=== PATIENT | male | born 1965 | race Caucasian/White ===

== ENCOUNTER 2018-05-12 07:02 | Inpatient (IN) | payer BC ==
[~2018-05-12] VITALS: Ht 177.8 cm; Wt 104.8 kg
[~2018-05-12 07:02] MED LIST: ASA81 PO; CELE50CA PO; Embrel PO; FOLI-43 PO; HYDR-3610 PO; MAGN250T10 PO; METH2.5T PO; METO50TA7 PO; OXYC-133 PO; RANI300T4 PO
[2018-05-12 07:10] VITALS: BP_SYST 112
[2018-05-12] MEDS ORDERED: NACL 0.9% 1,000 ML IV ONE ×2 (07:30→17:45)
[2018-05-12 07:43] LABS: BASOPHILS % (AUTO) 0.3 % (0.0-2.0); EOSINOPHILS % (AUTO) 0.1 % (0.0-4.0); HEMATOCRIT 29.4 % (36-54); HEMOGLOBIN 9.9 g/dL (14.0-18.0); LYMPHOCYTES # (AUTO) 2.9 K/uL (1.0-5.5); LYMPHOCYTES % (AUTO) 18.2 % (20.5-51.5); MEAN CORPUSCULAR HEMOGLOBIN 31 pg (27-31); MEAN CORPUSCULAR HGB CONC 34 % (32-36); MEAN CORPUSCULAR VOLUME 92 fL (79.0-98.0); MONOCYTES # (AUTO) 1.3 K/uL (0.0-1.0); MONOCYTES % (AUTO) 7.9 % (1.7-9.3); NEUTROPHILS # (AUTO) 11.8 K/uL (1.8-7.7); NEUTROPHILS % (AUTO) 73.5 % (40.0-70.0); PLATELET COUNT (AUTO) 304 K/uL (130-430); RED CELL DISTRIBUTION WIDTH 13.7 % (9.0-15.0)
[2018-05-12] MEDS ORDERED: MAG-AL HYDROX/SIMETH 30 ML UDC PO ONE (08:00)
[2018-05-12 08:10] LABS: ALBUMIN 3.5 g/dL (3.4-4.8); POTASSIUM 4.7 mmol/L (3.5-5.1); TOTAL BILIRUBIN 0.2 mg/dL (0.0-1.0)
[2018-05-12] MEDS ORDERED: LORazepam 2 MG/ML VIAL IVP ONE (08:15)
[2018-05-12 08:19] LABS: CREATININE 0.86 mg/dL (0.55-1.30)
[2018-05-12] MEDS ORDERED: MULT-1089 PO (08:19)
[2018-05-12] MEDS ORDERED: ALPR0.5T PO (08:19)
[2018-05-12] MEDS ORDERED: HYDR-2489 PO (08:19)
[2018-05-12] MEDS ORDERED: RED600TA PO (08:19)
[2018-05-12] MEDS ORDERED: FERR140T PO (08:19)
[2018-05-12] MEDS ORDERED: SUCR1TAB78 PO (08:19)
[2018-05-12] MEDS ORDERED: GABA-531 PO (08:19)
[2018-05-12] MEDS ORDERED: CALC-823 PO (08:19)
[2018-05-12] MEDS ORDERED: [UNRECOGNIZED DRUG - CODE] PO ×2 (08:19→16:05)
[2018-05-12] MEDS ORDERED: ETAN50DI2 SQ (08:19)
[2018-05-12] MEDS ORDERED: SAW160CA3 PO (08:19)
[2018-05-12] MEDS ORDERED: VITA1CAP PO (08:19)
[2018-05-12] MEDS ORDERED: LORazepam 2 MG/ML VIAL (FOR ER USE) IVP ONE (08:30)
[2018-05-12] MEDS ORDERED: LORazepam 2 MG/ML VIAL (FOR ER USE) IM ONE (08:30)
[2018-05-12 08:38] LABS: PROTHROMBIN TIME 9.6 SECS (9.5-12.5)
[2018-05-12 10:28] VITALS: BP_SYST 118
[2018-05-12] MEDS ORDERED: METH25VI32 IJ (10:42)
[2018-05-12] MEDS ORDERED: MIDAZOLAM HCL 5 MG/5 ML VIAL IVP ONE (12:40)
[2018-05-12] MEDS ORDERED: hydrALAZINE HCL 20 MG/ML VIAL IVP ONE (12:40)
[2018-05-12] MEDS ORDERED: fentaNYL CITRATE/PF 100 MCG/2 ML AMP IVP ONE (12:40)
[2018-05-12] MEDS ORDERED: PROPOFOL 200MG/ 20ML VIAL (DIPRIVAN) IV ONE (12:40)
[2018-05-12] MEDS ORDERED: LR 1,000 ML IV.SOLN IV ONE (12:40)
[2018-05-12] MEDS ORDERED: HYDROcodone/ACETAMIN 10-325 MG TAB PO ONE (13:15)
[2018-05-12] MEDS ORDERED: HYDROcodone/ACETAMIN 10-325 MG TAB ONE (13:20)
[2018-05-12] MEDS ORDERED: MECLIZINE HCL 25 MG TABLET (ANITVERT) PO PRN (15:30)
[2018-05-12] MEDS ORDERED: KCL 20 mEq in D5NS 1000 mL 1,000 ML IV SCH (15:30)
[2018-05-12] MEDS ORDERED: DISOPYRAMIDE PHOSPHATE 150 MG CAPSULE PO SCH ×3 (16:30→21:00)
[2018-05-12 16:41] VITALS: BP_SYST 110
[2018-05-12] MEDS: SUCRALFATE 1 GM TABLET PO SCH ×2 (16:55→20:03)
[2018-05-12] MEDS: HYDROcodone/ACETAMIN 10-325 MG TAB PO PRN ×2 (18:11→22:43)
[2018-05-12] MEDS: NACL 0.9% 1,000 ML IV SCH (19:19)
[2018-05-12 19:47] VITALS: BP_SYST 114
[2018-05-12] MEDS: GABAPENTIN 300 MG CAPSULE PO SCH (20:03)
[2018-05-12] MEDS: NORPACE PO SCH (20:04)
[2018-05-13] VITALS: BP_SYST 101
[2018-05-13] MEDS: NACL 0.9% 1,000 ML IV SCH ×3 (00:33→10:49)
[2018-05-13] MEDS: HYDROcodone/ACETAMIN 10-325 MG TAB PO PRN ×4 (04:03→17:11)
[2018-05-13 07:37] LABS: BASOPHILS # (AUTO) 0.1 K/uL (0.0-0.2); BASOPHILS % (AUTO) 1.2 % (0.0-2.0); EOSINOPHILS # (AUTO) 0.1 K/uL (0.0-0.4); EOSINOPHILS % (AUTO) 0.7 % (0.0-4.0); LYMPHOCYTES # (AUTO) 2.9 K/uL (1.0-5.5); LYMPHOCYTES % (AUTO) 26.3 % (20.5-51.5); MEAN CORPUSCULAR HEMOGLOBIN 31 pg (27-31); MEAN CORPUSCULAR HGB CONC 33 % (32-36); MEAN CORPUSCULAR VOLUME 96 fL (79.0-98.0); MONOCYTES # (AUTO) 0.9 K/uL (0.0-1.0); NEUTROPHILS # (AUTO) 6.9 K/uL (1.8-7.7); NEUTROPHILS % (AUTO) 63.8 % (40.0-70.0); PLATELET COUNT (AUTO) 212 K/uL (130-430); RED BLOOD CELL COUNT(AUTO) 2.06 MIL/uL (4.2-6.2); RED CELL DISTRIBUTION WIDTH 13.9 % (9.0-15.0); WHITE BLOOD COUNT (AUTO) 10.9 K/uL (4.8-10.8)
[2018-05-13 07:38] LABS: ALBUMIN 2.6 g/dL (3.4-4.8); CALCIUM 8.1 mg/dL (8.4-11.0); CREATININE 0.62 mg/dL (0.55-1.30); POTASSIUM 3.8 mmol/L (3.5-5.1); TOTAL BILIRUBIN 0.3 mg/dL (0.0-1.0)
[2018-05-13 07:39] LABS: THYROID STIMULATING HORMONE 2.25 uIu/mL (0.34-4.82)
[2018-05-13 07:46] LABS: HEMATOCRIT 19.7 % (36-54); HEMOGLOBIN 6.4 g/dL (14.0-18.0)
[2018-05-13] MEDS: NORPACE PO SCH ×4 (08:00→20:52)
[2018-05-13] MEDS: FOLIC ACID 1 MG TABLET PO SCH (08:55)
[2018-05-13] MEDS: VITAMIN B COMPLEX 1 CAP/TAB PO SCH (08:55)
[2018-05-13] MEDS: MULTIVITAMINS TAB 1 TABLET PO SCH (08:55)
[2018-05-13] MEDS: GABAPENTIN 300 MG CAPSULE PO SCH ×3 (08:56→20:50)
[2018-05-13] MEDS: SUCRALFATE 1 GM TABLET PO SCH ×4 (08:56→20:49)
[2018-05-13] MEDS: CALCIUM CARBONATE/VITAMIN D3 1 TAB TABLET PO SCH (08:56)
[2018-05-13] MEDS: ASPIRIN 81 MG TAB.CHEW PO SCH (08:56)
[2018-05-13] MEDS: FERROUS SULFATE 140 MG TABLET.ER PO SCH (08:57)
[2018-05-13 09:00] LABS: TOTAL IRON BIND. CAPACITY 250 ug/dL (250-450)
[2018-05-13] MEDS: ALPRAZolam 0.25 MG TABLET PO PRN ×2 (10:48→17:10)
[2018-05-13 10:55] VITALS: BP_SYST 115
[2018-05-13] MEDS: HYDROmorphone 1 MG INJ. 1 MG/ML AMPUL IVP PRN ×2 (11:27→21:26)
[2018-05-13 16:02] VITALS: BP_SYST 100
[2018-05-13 19:45] VITALS: BP_SYST 111
[2018-05-13 22:20] VITALS: BP_SYST 119
[2018-05-13 22:41] VITALS: BP_SYST 113
[2018-05-14] VITALS (7 sets, daily range): BP systolic 103–134
[2018-05-14] MEDS: HYDROcodone/ACETAMIN 10-325 MG TAB PO PRN ×3 (01:01→20:51)
[2018-05-14] MEDS: NACL 0.9% 1,000 ML IV SCH ×3 (02:45→18:56)
[2018-05-14] MEDS: HYDROmorphone 1 MG INJ. 1 MG/ML AMPUL IVP PRN ×5 (05:21→23:12)
[2018-05-14 07:09] LABS: BASOPHILS % (AUTO) 0.3 % (0.0-2.0); EOSINOPHILS # (AUTO) 0.2 K/uL (0.0-0.4); EOSINOPHILS % (AUTO) 1.7 % (0.0-4.0); HEMOGLOBIN 7.1 g/dL (14.0-18.0); LYMPHOCYTES # (AUTO) 2.1 K/uL (1.0-5.5); LYMPHOCYTES % (AUTO) 20.7 % (20.5-51.5); MEAN CORPUSCULAR HEMOGLOBIN 31 pg (27-31); MEAN CORPUSCULAR HGB CONC 33 % (32-36); MEAN CORPUSCULAR VOLUME 95 fL (79.0-98.0); MONOCYTES % (AUTO) 9.7 % (1.7-9.3); NEUTROPHILS # (AUTO) 6.8 K/uL (1.8-7.7); NEUTROPHILS % (AUTO) 67.6 % (40.0-70.0); PLATELET COUNT (AUTO) 174 K/uL (130-430); RED BLOOD CELL COUNT(AUTO) 2.29 MIL/uL (4.2-6.2); RED CELL DISTRIBUTION WIDTH 13.9 % (9.0-15.0); WHITE BLOOD COUNT (AUTO) 10.1 K/uL (4.8-10.8)
[2018-05-14 07:29] LABS: HEMATOCRIT 21.7 % (36-54)
[2018-05-14 08:02] LABS: CALCIUM 7.7 mg/dL (8.4-11.0); CREATININE 0.61 mg/dL (0.55-1.30); POTASSIUM 3.8 mmol/L (3.5-5.1)
[2018-05-14] MEDS: VITAMIN B COMPLEX 1 CAP/TAB PO SCH (08:18)
[2018-05-14] MEDS: SUCRALFATE 1 GM TABLET PO SCH ×4 (08:18→20:50)
[2018-05-14] MEDS: MULTIVITAMINS TAB 1 TABLET PO SCH (08:18)
[2018-05-14] MEDS: ALPRAZolam 0.25 MG TABLET PO PRN (08:18)
[2018-05-14] MEDS: ASPIRIN 81 MG TAB.CHEW PO SCH (08:18)
[2018-05-14] MEDS: GABAPENTIN 300 MG CAPSULE PO SCH ×3 (08:18→20:50)
[2018-05-14] MEDS: CALCIUM CARBONATE/VITAMIN D3 1 TAB TABLET PO SCH (08:18)
[2018-05-14] MEDS: FERROUS SULFATE 140 MG TABLET.ER PO SCH (08:19)
[2018-05-14] MEDS: FOLIC ACID 1 MG TABLET PO SCH (08:19)
[2018-05-14] MEDS: NORPACE PO SCH ×3 (08:19→20:51)
[2018-05-14] MEDS ORDERED: DISOPYRAMIDE PHOSPHATE 150 MG CAPSULE PO SCH (09:30)
[2018-05-14] MEDS: levETIRAcetam 500 MG TABLET PO SCH (20:50)
[2018-05-15] MEDS: NACL 0.9% 1,000 ML IV SCH ×3 (02:37→18:46)
[2018-05-15] MEDS: HYDROcodone/ACETAMIN 10-325 MG TAB PO PRN ×4 (02:38→18:47)
[2018-05-15] MEDS: HYDROmorphone 1 MG INJ. 1 MG/ML AMPUL IVP PRN ×6 (05:08→20:58)
[2018-05-15 07:47] LABS: BASOPHILS % (AUTO) 0.5 % (0.0-2.0); EOSINOPHILS # (AUTO) 0.3 K/uL (0.0-0.4); HEMATOCRIT 24.7 % (36-54); HEMOGLOBIN 8.2 g/dL (14.0-18.0); LYMPHOCYTES # (AUTO) 2.3 K/uL (1.0-5.5); LYMPHOCYTES % (AUTO) 23.4 % (20.5-51.5); MEAN CORPUSCULAR HEMOGLOBIN 31 pg (27-31); MEAN CORPUSCULAR HGB CONC 33 % (32-36); MEAN CORPUSCULAR VOLUME 95 fL (79.0-98.0); MONOCYTES # (AUTO) 0.8 K/uL (0.0-1.0); MONOCYTES % (AUTO) 8.1 % (1.7-9.3); NEUTROPHILS # (AUTO) 6.4 K/uL (1.8-7.7); PLATELET COUNT (AUTO) 193 K/uL (130-430); RED CELL DISTRIBUTION WIDTH 13.9 % (9.0-15.0); WHITE BLOOD COUNT (AUTO) 9.8 K/uL (4.8-10.8)
[2018-05-15 07:52] LABS: CALCIUM 8.3 mg/dL (8.4-11.0); CREATININE 0.59 mg/dL (0.55-1.30); POTASSIUM 3.4 mmol/L (3.5-5.1)
[2018-05-15 08:00] VITALS: BP_SYST 112
[2018-05-15] MEDS: VITAMIN B COMPLEX 1 CAP/TAB PO SCH (08:27)
[2018-05-15] MEDS: FOLIC ACID 1 MG TABLET PO SCH (08:27)
[2018-05-15] MEDS: levETIRAcetam 500 MG TABLET PO SCH ×2 (08:27→20:30)
[2018-05-15] MEDS: ASPIRIN 81 MG TAB.CHEW PO SCH (08:27)
[2018-05-15] MEDS: SUCRALFATE 1 GM TABLET PO SCH ×4 (08:27→20:29)
[2018-05-15] MEDS: FERROUS SULFATE 140 MG TABLET.ER PO SCH (08:27)
[2018-05-15] MEDS: MULTIVITAMINS TAB 1 TABLET PO SCH (08:27)
[2018-05-15] MEDS: CALCIUM CARBONATE/VITAMIN D3 1 TAB TABLET PO SCH (08:27)
[2018-05-15] MEDS: NORPACE PO SCH ×3 (08:29→20:30)
[2018-05-15] MEDS: GABAPENTIN 300 MG CAPSULE PO SCH ×3 (08:44→20:29)
[2018-05-15] MEDS: ALPRAZolam 0.25 MG TABLET PO PRN (08:45)
[2018-05-15 12:00] VITALS: BP_SYST 129
[2018-05-15 16:00] VITALS: BP_SYST 132
[2018-05-15] MEDS ORDERED: GOLYTELY / COLYTE SOLUTION 4 LITERS PO ONE (18:00)
[2018-05-15 20:00] VITALS: BP_SYST 115
[2018-05-16] MEDS: HYDROcodone/ACETAMIN 10-325 MG TAB PO PRN ×4 (00:28→20:25)
[2018-05-16 01:26] VITALS: BP_SYST 118
[2018-05-16] MEDS: HYDROmorphone 1 MG INJ. 1 MG/ML AMPUL IVP PRN ×6 (01:47→22:14)
[2018-05-16] MEDS: NACL 0.9% 1,000 ML IV SCH ×3 (01:48→18:46)
[2018-05-16] MEDS ORDERED: fentaNYL CITRATE/PF 100 MCG/2 ML AMP ONE (06:32)
[2018-05-16] MEDS ORDERED: SIMETHICONE 40 MG/0.6 ML ML ONE (06:33)
[2018-05-16] MEDS ORDERED: MIDAZOLAM HCL 5 MG/5 ML VIAL ONE (06:33)
[2018-05-16] MEDS: MIDAZOLAM HCL 5 MG/5 ML VIAL ONE ×5 (07:02→07:18)
[2018-05-16] MEDS: MEPERIDINE HCL/PF 100 MG/ML AMP ONE ×3 (07:02→07:06)
[2018-05-16] MEDS ORDERED: MEPERIDINE HCL/PF 100 MG/ML AMP ONE (07:09)
[2018-05-16] MEDS: levETIRAcetam 500 MG TABLET PO SCH ×2 (08:56→20:25)
[2018-05-16] MEDS: ASPIRIN 81 MG TAB.CHEW PO SCH (08:56)
[2018-05-16] MEDS: ALPRAZolam 0.25 MG TABLET PO PRN ×2 (08:56→22:14)
[2018-05-16] MEDS: GABAPENTIN 300 MG CAPSULE PO SCH ×3 (08:57→20:24)
[2018-05-16] MEDS: CALCIUM CARBONATE/VITAMIN D3 1 TAB TABLET PO SCH (08:57)
[2018-05-16] MEDS: SUCRALFATE 1 GM TABLET PO SCH ×5 (08:57→20:24)
[2018-05-16] MEDS: VITAMIN B COMPLEX 1 CAP/TAB PO SCH (08:57)
[2018-05-16] MEDS: MULTIVITAMINS TAB 1 TABLET PO SCH (08:58)
[2018-05-16] MEDS: FERROUS SULFATE 140 MG TABLET.ER PO SCH (09:14)
[2018-05-16] MEDS: FOLIC ACID 1 MG TABLET PO SCH (09:14)
[2018-05-16] MEDS: NORPACE PO SCH ×3 (09:15→20:26)
[2018-05-16 11:17] LABS: INR 0.9 (0.80-1.20); PROTHROMBIN TIME 9.3 SECS (9.5-12.5)
[2018-05-16 11:20] LABS: BASOPHILS % (AUTO) 0.5 % (0.0-2.0); EOSINOPHILS # (AUTO) 0.3 K/uL (0.0-0.4); EOSINOPHILS % (AUTO) 3.7 % (0.0-4.0); LYMPHOCYTES # (AUTO) 1.7 K/uL (1.0-5.5); LYMPHOCYTES % (AUTO) 20.9 % (20.5-51.5); MEAN CORPUSCULAR HEMOGLOBIN 31 pg (27-31); MEAN CORPUSCULAR HGB CONC 33 % (32-36); MEAN CORPUSCULAR VOLUME 96 fL (79.0-98.0); MONOCYTES # (AUTO) 0.7 K/uL (0.0-1.0); MONOCYTES % (AUTO) 8.6 % (1.7-9.3); NEUTROPHILS # (AUTO) 5.6 K/uL (1.8-7.7); NEUTROPHILS % (AUTO) 66.3 % (40.0-70.0); PLATELET COUNT (AUTO) 219 K/uL (130-430); RED CELL DISTRIBUTION WIDTH 14.8 % (9.0-15.0); WHITE BLOOD COUNT (AUTO) 8.3 K/uL (4.8-10.8)
[2018-05-16 11:26] LABS: HEMOGLOBIN 7.2 g/dL (14.0-18.0)
[2018-05-16 12:24] LABS: TOTAL IRON BIND. CAPACITY 284 ug/dL (250-450)
[2018-05-16 12:38] VITALS: BP_SYST 110
[2018-05-16 16:40] VITALS: BP_SYST 122
[2018-05-16] MEDS ORDERED: SILVER SULFADIAZINE 1%, 25 GM TOPICAL CREAM (SSD) TP ONE (16:45)
[2018-05-16] MEDS: SOD FERRIC GLUC COMPLEX/SUC 125 MG in NS 100 ML IV SCH (17:40)
[2018-05-16 20:00] VITALS: BP_SYST 109
[2018-05-17] VITALS: BP_SYST 114
[2018-05-17] MEDS: NACL 0.9% 1,000 ML IV SCH ×3 (00:27→18:46)
[2018-05-17] MEDS: HYDROmorphone 1 MG INJ. 1 MG/ML AMPUL IVP PRN ×6 (02:25→20:57)
[2018-05-17] MEDS: HYDROcodone/ACETAMIN 10-325 MG TAB PO PRN ×3 (06:18→20:57)
[2018-05-17 06:46] LABS: BASOPHILS % (AUTO) 0.4 % (0.0-2.0); EOSINOPHILS # (AUTO) 0.2 K/uL (0.0-0.4); EOSINOPHILS % (AUTO) 3.7 % (0.0-4.0); LYMPHOCYTES # (AUTO) 1.7 K/uL (1.0-5.5); LYMPHOCYTES % (AUTO) 25.8 % (20.5-51.5); MEAN CORPUSCULAR HEMOGLOBIN 32 pg (27-31); MEAN CORPUSCULAR HGB CONC 33 % (32-36); MEAN CORPUSCULAR VOLUME 96 fL (79.0-98.0); MONOCYTES # (AUTO) 0.6 K/uL (0.0-1.0); MONOCYTES % (AUTO) 9.8 % (1.7-9.3); NEUTROPHILS # (AUTO) 4.1 K/uL (1.8-7.7); NEUTROPHILS % (AUTO) 60.3 % (40.0-70.0); PLATELET COUNT (AUTO) 204 K/uL (130-430); RED CELL DISTRIBUTION WIDTH 16.2 % (9.0-15.0); WHITE BLOOD COUNT (AUTO) 6.6 K/uL (4.8-10.8)
[2018-05-17 07:18] LABS: HEMATOCRIT 21.2 % (36-54)
[2018-05-17 08:00] VITALS: BP_SYST 134
[2018-05-17] MEDS: GABAPENTIN 300 MG CAPSULE PO SCH ×3 (09:02→20:56)
[2018-05-17] MEDS: ASPIRIN 81 MG TAB.CHEW PO SCH (09:02)
[2018-05-17] MEDS: MULTIVITAMINS TAB 1 TABLET PO SCH (09:02)
[2018-05-17] MEDS: CALCIUM CARBONATE/VITAMIN D3 1 TAB TABLET PO SCH (09:02)
[2018-05-17] MEDS: VITAMIN B COMPLEX 1 CAP/TAB PO SCH (09:03)
[2018-05-17] MEDS: NORPACE PO SCH ×3 (09:03→20:59)
[2018-05-17] MEDS: FERROUS SULFATE 140 MG TABLET.ER PO SCH (09:03)
[2018-05-17] MEDS: levETIRAcetam 500 MG TABLET PO SCH ×2 (09:03→20:56)
[2018-05-17] MEDS: SUCRALFATE 1 GM TABLET PO SCH ×4 (09:03→20:56)
[2018-05-17] MEDS: FOLIC ACID 1 MG TABLET PO SCH (09:03)
[2018-05-17] MEDS: ALPRAZolam 0.25 MG TABLET PO PRN ×2 (09:09→15:38)
[2018-05-17] MEDS: SILVER SULFADIAZINE 1%, 25 GM TOPICAL CREAM (SSD) TP SCH (09:09)
[2018-05-17 11:06] LABS: FERRITIN 43 ng/mL (30-400); FOLATE (FOLIC ACID) >20.0 ng/mL (>3.0)
[2018-05-17 12:02] VITALS: BP_SYST 138
[2018-05-17] MEDS: SOD FERRIC GLUC COMPLEX/SUC 125 MG in NS 100 ML IV SCH (14:48)
[2018-05-17 16:02] VITALS: BP_SYST 138
[2018-05-17 20:37] VITALS: BP_SYST 130
[2018-05-18 01:15] VITALS: BP_SYST 121
[2018-05-18] MEDS: HYDROmorphone 1 MG INJ. 1 MG/ML AMPUL IVP PRN ×5 (01:28→22:59)
[2018-05-18] MEDS: NACL 0.9% 1,000 ML IV SCH ×3 (04:31→18:19)
[2018-05-18] MEDS: SILVER SULFADIAZINE 1%, 25 GM TOPICAL CREAM (SSD) TP SCH (04:34)
[2018-05-18 07:26] LABS: ALBUMIN 2.7 g/dL (3.4-4.8); CALCIUM 8.5 mg/dL (8.4-11.0); CREATININE 0.67 mg/dL (0.55-1.30); POTASSIUM 3.2 mmol/L (3.5-5.1); TOTAL BILIRUBIN 0.3 mg/dL (0.0-1.0)
[2018-05-18 08:06] LABS: BASOPHILS # (AUTO) 0.1 K/uL (0.0-0.2); BASOPHILS % (AUTO) 1.3 % (0.0-2.0); EOSINOPHILS # (AUTO) 0.3 K/uL (0.0-0.4); EOSINOPHILS % (AUTO) 4.1 % (0.0-4.0); HEMOGLOBIN 7.1 g/dL (14.0-18.0); LYMPHOCYTES # (AUTO) 1.4 K/uL (1.0-5.5); LYMPHOCYTES % (AUTO) 21.5 % (20.5-51.5); MEAN CORPUSCULAR HEMOGLOBIN 31 pg (27-31); MEAN CORPUSCULAR HGB CONC 32 % (32-36); MEAN CORPUSCULAR VOLUME 97 fL (79.0-98.0); MONOCYTES # (AUTO) 0.8 K/uL (0.0-1.0); MONOCYTES % (AUTO) 11.7 % (1.7-9.3); NEUTROPHILS % (AUTO) 61.4 % (40.0-70.0); PLATELET COUNT (AUTO) 217 K/uL (130-430); RED BLOOD CELL COUNT(AUTO) 2.28 MIL/uL (4.2-6.2); RED CELL DISTRIBUTION WIDTH 16.9 % (9.0-15.0); WHITE BLOOD COUNT (AUTO) 6.6 K/uL (4.8-10.8)
[2018-05-18] MEDS: NORPACE PO SCH ×3 (08:20→20:19)
[2018-05-18] MEDS: CALCIUM CARBONATE/VITAMIN D3 1 TAB TABLET PO SCH (08:21)
[2018-05-18] MEDS: ALPRAZolam 0.25 MG TABLET PO PRN (08:21)
[2018-05-18] MEDS: FOLIC ACID 1 MG TABLET PO SCH (08:21)
[2018-05-18] MEDS: GABAPENTIN 300 MG CAPSULE PO SCH ×3 (08:21→20:18)
[2018-05-18] MEDS: ASPIRIN 81 MG TAB.CHEW PO SCH (08:21)
[2018-05-18] MEDS: MULTIVITAMINS TAB 1 TABLET PO SCH (08:21)
[2018-05-18] MEDS: FERROUS SULFATE 140 MG TABLET.ER PO SCH (08:21)
[2018-05-18] MEDS: VITAMIN B COMPLEX 1 CAP/TAB PO SCH (08:21)
[2018-05-18] MEDS: SUCRALFATE 1 GM TABLET PO SCH ×4 (08:22→20:17)
[2018-05-18] MEDS: levETIRAcetam 500 MG TABLET PO SCH ×2 (08:22→20:17)
[2018-05-18 08:26] VITALS: BP_SYST 125
[2018-05-18] MEDS ORDERED: BISACODYL 5 MG TABLET.DR (DULCOLAX) PO ONE ×2 (11:30→17:00)
[2018-05-18] MEDS ORDERED: MAGNESIUM CITRATE 300 ML ORAL SOLUTION PO ONE (11:30)
[2018-05-18 12:00] VITALS: BP_SYST 149
[2018-05-18] MEDS: HYDROcodone/ACETAMIN 10-325 MG TAB PO PRN ×3 (12:04→20:18)
[2018-05-18] MEDS: SOD FERRIC GLUC COMPLEX/SUC 125 MG in NS 100 ML IV SCH (14:17)
[2018-05-18] MEDS ORDERED: COMMUNICATION ORDER XX ONE (16:15)
[2018-05-18 16:56] VITALS: BP_SYST 122
[2018-05-18 17:02] LABS: RETICULOCYTE COUNT 11.4 % (0.5-1.5)
[2018-05-18] MEDS: GOLYTELY / COLYTE SOLUTION 4 LITERS PO SCH ×2 (17:55→22:21)
[2018-05-18] MEDS ORDERED: GOLYTELY / COLYTE SOLUTION 4 LITERS PO ONE (18:00)
[2018-05-18] MEDS ORDERED: HYDROmorphone 2 MG/ML VIAL ONE (18:34)
[2018-05-18 20:00] VITALS: BP_SYST 140
[2018-05-18] MEDS ORDERED: POTASSIUM CHLORIDE 20 MEQ TAB.PRT.SR PO ONE (21:30)
[2018-05-18] MEDS: ALPRAZolam 0.25 MG TABLET PO SCH (23:26)
[2018-05-19 02:25] VITALS: BP_SYST 127
[2018-05-19] MEDS: NACL 0.9% 1,000 ML IV SCH ×3 (02:46→21:31)
[2018-05-19] MEDS: HYDROmorphone 1 MG INJ. 1 MG/ML AMPUL IVP PRN ×5 (03:02→15:13)
[2018-05-19] MEDS ORDERED: HYDROmorphone 1 MG INJ. 1 MG/ML AMPUL ONE (04:13)
[2018-05-19] MEDS: HYDROmorphone 2 MG/ML VIAL IVP ONE ×2 (04:15→04:30)
[2018-05-19] MEDS: NORPACE PO SCH ×3 (08:00→21:00)
[2018-05-19 08:10] VITALS: BP_SYST 138
[2018-05-19] MEDS: levETIRAcetam 500 MG TABLET PO SCH ×2 (09:00→21:00)
[2018-05-19] MEDS: ALPRAZolam 0.25 MG TABLET PO SCH ×3 (09:00→22:10)
[2018-05-19] MEDS: VITAMIN B COMPLEX 1 CAP/TAB PO SCH (09:00)
[2018-05-19] MEDS: SUCRALFATE 1 GM TABLET PO SCH ×4 (09:00→21:00)
[2018-05-19] MEDS: FOLIC ACID 1 MG TABLET PO SCH (09:00)
[2018-05-19] MEDS: GABAPENTIN 300 MG CAPSULE PO SCH ×3 (09:00→22:11)
[2018-05-19] MEDS: CALCIUM CARBONATE/VITAMIN D3 1 TAB TABLET PO SCH (09:00)
[2018-05-19] MEDS: MULTIVITAMINS TAB 1 TABLET PO SCH (09:00)
[2018-05-19] MEDS: ASPIRIN 81 MG TAB.CHEW PO SCH (09:00)
[2018-05-19] MEDS: FERROUS SULFATE 140 MG TABLET.ER PO SCH (09:00)
[2018-05-19] MEDS ORDERED: HYDROmorphone 2 MG/ML VIAL IVP ONE (10:00)
[2018-05-19] MEDS: SILVER SULFADIAZINE 1%, 25 GM TOPICAL CREAM (SSD) TP SCH (10:19)
[2018-05-19 10:35] VITALS: BP_SYST 144
[2018-05-19 12:04] LABS: BASOPHILS % (AUTO) 0.4 % (0.0-2.0); EOSINOPHILS # (AUTO) 0.1 K/uL (0.0-0.4); EOSINOPHILS % (AUTO) 1.7 % (0.0-4.0); HEMATOCRIT 28.5 % (36-54); HEMOGLOBIN 8.8 g/dL (14.0-18.0); LYMPHOCYTES # (AUTO) 0.9 K/uL (1.0-5.5); LYMPHOCYTES % (AUTO) 10.5 % (20.5-51.5); MEAN CORPUSCULAR HEMOGLOBIN 29 pg (27-31); MEAN CORPUSCULAR HGB CONC 31 % (32-36); MEAN CORPUSCULAR VOLUME 95 fL (79.0-98.0); MONOCYTES # (AUTO) 0.7 K/uL (0.0-1.0); MONOCYTES % (AUTO) 7.6 % (1.7-9.3); NEUTROPHILS # (AUTO) 7.1 K/uL (1.8-7.7); NEUTROPHILS % (AUTO) 79.8 % (40.0-70.0); PLATELET COUNT (AUTO) 245 K/uL (130-430); RED BLOOD CELL COUNT(AUTO) 3.01 MIL/uL (4.2-6.2); RED CELL DISTRIBUTION WIDTH 16.3 % (9.0-15.0); WHITE BLOOD COUNT (AUTO) 8.8 K/uL (4.8-10.8)
[2018-05-19 12:20] LABS: CALCIUM 8.7 mg/dL (8.4-11.0); CREATININE 0.64 mg/dL (0.55-1.30); POTASSIUM 3.9 mmol/L (3.5-5.1)
[2018-05-19 12:48] LABS: PROTHROMBIN TIME 9.9 SECS (9.5-12.5)
[2018-05-19] MEDS ORDERED: SIMETHICONE 40 MG/0.6 ML ML ONE (13:05)
[2018-05-19] MEDS ORDERED: fentaNYL CITRATE/PF 100 MCG/2 ML AMP IVP PRN ×2 (13:15)
[2018-05-19] MEDS ORDERED: ONDANSETRON HCL 4 MG/2 ML VIAL IVP PRN (13:15)
[2018-05-19] MEDS ORDERED: KETOROLAC TROMETHAMINE 30 MG VIAL IVP PRN (13:15)
[2018-05-19] MEDS ORDERED: fentaNYL CITRATE/PF 100 MCG/2 ML AMP ONE (13:48)
[2018-05-19] MEDS: HYDROmorphone 2 MG/ML VIAL IVP PRN ×2 (17:22→20:28)
[2018-05-19] MEDS: SOD FERRIC GLUC COMPLEX/SUC 125 MG in NS 100 ML IV SCH (17:42)
[2018-05-19 20:00] VITALS: BP_SYST 126
[2018-05-19] MEDS: HYDROcodone/ACETAMIN 10-325 MG TAB PO PRN (22:06)
[2018-05-19 23:40] VITALS: BP_SYST 95
[2018-05-20] MEDS: HYDROmorphone 2 MG/ML VIAL IVP PRN ×7 (01:22→21:00)
[2018-05-20] MEDS: NACL 0.9% 1,000 ML IV SCH ×3 (04:57→14:30)
[2018-05-20 05:00] VITALS: BP_SYST 99
[2018-05-20 07:31] LABS: BASOPHILS % (AUTO) 0.2 % (0.0-2.0); EOSINOPHILS # (AUTO) 0.1 K/uL (0.0-0.4); EOSINOPHILS % (AUTO) 0.8 % (0.0-4.0); HEMATOCRIT 28.9 % (36-54); HEMOGLOBIN 9.3 g/dL (14.0-18.0); LYMPHOCYTES # (AUTO) 0.6 K/uL (1.0-5.5); MEAN CORPUSCULAR HEMOGLOBIN 30 pg (27-31); MEAN CORPUSCULAR HGB CONC 32 % (32-36); MEAN CORPUSCULAR VOLUME 94 fL (79.0-98.0); MONOCYTES # (AUTO) 0.5 K/uL (0.0-1.0); MONOCYTES % (AUTO) 5.7 % (1.7-9.3); NEUTROPHILS % (AUTO) 86.3 % (40.0-70.0); PLATELET COUNT (AUTO) 210 K/uL (130-430); RED BLOOD CELL COUNT(AUTO) 3.08 MIL/uL (4.2-6.2); RED CELL DISTRIBUTION WIDTH 16.2 % (9.0-15.0); WHITE BLOOD COUNT (AUTO) 8.2 K/uL (4.8-10.8)
[2018-05-20 08:11] VITALS: BP_SYST 107
[2018-05-20] MEDS: NORPACE PO SCH ×4 (08:15→23:01)
[2018-05-20] MEDS: FOLIC ACID 1 MG TABLET PO SCH (08:15)
[2018-05-20] MEDS: SUCRALFATE 1 GM TABLET PO SCH ×4 (08:15→22:55)
[2018-05-20] MEDS: FERROUS SULFATE 140 MG TABLET.ER PO SCH (08:15)
[2018-05-20] MEDS: levETIRAcetam 500 MG TABLET PO SCH ×2 (08:16→22:55)
[2018-05-20] MEDS: MULTIVITAMINS TAB 1 TABLET PO SCH (08:16)
[2018-05-20] MEDS: ALPRAZolam 0.25 MG TABLET PO SCH ×3 (08:16→22:55)
[2018-05-20] MEDS: CALCIUM CARBONATE/VITAMIN D3 1 TAB TABLET PO SCH (08:16)
[2018-05-20] MEDS: ASPIRIN 81 MG TAB.CHEW PO SCH (08:16)
[2018-05-20] MEDS: GABAPENTIN 300 MG CAPSULE PO SCH ×3 (08:16→22:55)
[2018-05-20] MEDS: VITAMIN B COMPLEX 1 CAP/TAB PO SCH (08:16)
[2018-05-20] MEDS: SILVER SULFADIAZINE 1%, 25 GM TOPICAL CREAM (SSD) TP SCH (08:18)
[2018-05-20] MEDS: ALBUTEROL SULFATE 0.083% 2.5 MG/3 ML VIAL.NEB INH PRN (10:47)
[2018-05-20 11:47] VITALS: BP_SYST 101
[2018-05-20 13:01] VITALS: BP_SYST 105
[2018-05-20] MEDS: SOD FERRIC GLUC COMPLEX/SUC 125 MG in NS 100 ML IV SCH (14:29)
[2018-05-20 16:49] VITALS: BP_SYST 116
[2018-05-20 20:35] VITALS: BP_SYST 116
[2018-05-20] MEDS: HYDROcodone/ACETAMIN 10-325 MG TAB PO PRN (22:57)
[2018-05-21] MEDS: NACL 0.9% 1,000 ML IV SCH ×4 (00:44→23:05)
[2018-05-21] MEDS: HYDROmorphone 2 MG/ML VIAL IVP PRN ×7 (00:47→23:10)
[2018-05-21 07:46] LABS: BASOPHILS % (AUTO) 0.1 % (0.0-2.0); EOSINOPHILS # (AUTO) 0.1 K/uL (0.0-0.4); EOSINOPHILS % (AUTO) 1.1 % (0.0-4.0); HEMATOCRIT 24.8 % (36-54); LYMPHOCYTES # (AUTO) 0.9 K/uL (1.0-5.5); LYMPHOCYTES % (AUTO) 12.9 % (20.5-51.5); MEAN CORPUSCULAR HEMOGLOBIN 30 pg (27-31); MEAN CORPUSCULAR HGB CONC 32 % (32-36); MEAN CORPUSCULAR VOLUME 94 fL (79.0-98.0); MONOCYTES # (AUTO) 0.6 K/uL (0.0-1.0); MONOCYTES % (AUTO) 9.3 % (1.7-9.3); NEUTROPHILS # (AUTO) 5.1 K/uL (1.8-7.7); NEUTROPHILS % (AUTO) 76.6 % (40.0-70.0); PLATELET COUNT (AUTO) 174 K/uL (130-430); RED BLOOD CELL COUNT(AUTO) 2.64 MIL/uL (4.2-6.2); RED CELL DISTRIBUTION WIDTH 15.1 % (9.0-15.0); WHITE BLOOD COUNT (AUTO) 6.7 K/uL (4.8-10.8)
[2018-05-21 08:16] VITALS: BP_SYST 119
[2018-05-21] MEDS: MULTIVITAMINS TAB 1 TABLET PO SCH (08:28)
[2018-05-21] MEDS: CALCIUM CARBONATE/VITAMIN D3 1 TAB TABLET PO SCH (08:28)
[2018-05-21] MEDS: VITAMIN B COMPLEX 1 CAP/TAB PO SCH (08:29)
[2018-05-21] MEDS: levETIRAcetam 500 MG TABLET PO SCH ×2 (08:29→22:53)
[2018-05-21] MEDS: ASPIRIN 81 MG TAB.CHEW PO SCH (08:29)
[2018-05-21] MEDS: FOLIC ACID 1 MG TABLET PO SCH (08:29)
[2018-05-21] MEDS: GABAPENTIN 300 MG CAPSULE PO SCH ×3 (08:29→22:52)
[2018-05-21] MEDS: SILVER SULFADIAZINE 1%, 25 GM TOPICAL CREAM (SSD) TP SCH (08:31)
[2018-05-21] MEDS: FERROUS SULFATE 140 MG TABLET.ER PO SCH (08:31)
[2018-05-21] MEDS: SUCRALFATE 1 GM TABLET PO SCH ×4 (08:31→22:53)
[2018-05-21] MEDS: ALPRAZolam 0.25 MG TABLET PO SCH ×3 (08:34→22:52)
[2018-05-21] MEDS: NORPACE PO SCH ×2 (11:29→22:55)
[2018-05-21 12:02] VITALS: BP_SYST 113
[2018-05-21] MEDS: HYDROcodone/ACETAMIN 10-325 MG TAB PO PRN (13:33)
[2018-05-21 16:02] VITALS: BP_SYST 121
[2018-05-21] MEDS ORDERED: LEVOFLOXACIN 500 MG/D5W 100 ML IV ONE (20:00)
[2018-05-21] MEDS ORDERED: PANTOPRAZOLE SODIUM 80 MG in NS 100 ML IV ONE (20:00)
[2018-05-21] MEDS ORDERED: COMMUNICATION ORDER XX ONE (21:00)
[2018-05-21] MEDS: metroNIDAZOLE 500 mg/NS 100 ML IV SCH (23:53)
[2018-05-22] MEDS: PANTOPRAZOLE SODIUM 40 MG in NS 50 ML IV SCH ×5 (00:04→21:18)
[2018-05-22] MEDS: HYDROmorphone 2 MG/ML VIAL IVP PRN ×8 (02:49→23:57)
[2018-05-22 04:21] VITALS: BP_SYST 102
[2018-05-22] MEDS: metroNIDAZOLE 500 mg/NS 100 ML IV SCH ×3 (05:45→21:47)
[2018-05-22 08:23] LABS: BASOPHILS % (AUTO) 0.4 % (0.0-2.0); EOSINOPHILS # (AUTO) 0.1 K/uL (0.0-0.4); EOSINOPHILS % (AUTO) 1.9 % (0.0-4.0); HEMATOCRIT 25.4 % (36-54); LYMPHOCYTES # (AUTO) 0.7 K/uL (1.0-5.5); LYMPHOCYTES % (AUTO) 10.8 % (20.5-51.5); MEAN CORPUSCULAR HEMOGLOBIN 30 pg (27-31); MEAN CORPUSCULAR HGB CONC 32 % (32-36); MEAN CORPUSCULAR VOLUME 94 fL (79.0-98.0); MONOCYTES # (AUTO) 0.7 K/uL (0.0-1.0); MONOCYTES % (AUTO) 10.6 % (1.7-9.3); NEUTROPHILS # (AUTO) 5.3 K/uL (1.8-7.7); PLATELET COUNT (AUTO) 194 K/uL (130-430); RED BLOOD CELL COUNT(AUTO) 2.71 MIL/uL (4.2-6.2); RED CELL DISTRIBUTION WIDTH 14.6 % (9.0-15.0); WHITE BLOOD COUNT (AUTO) 6.8 K/uL (4.8-10.8)
[2018-05-22] MEDS: FERROUS SULFATE 140 MG TABLET.ER PO SCH (09:01)
[2018-05-22] MEDS: ALPRAZolam 0.25 MG TABLET PO SCH ×3 (09:01→21:18)
[2018-05-22] MEDS: SUCRALFATE 1 GM TABLET PO SCH ×4 (09:01→21:46)
[2018-05-22] MEDS: VITAMIN B COMPLEX 1 CAP/TAB PO SCH (09:01)
[2018-05-22] MEDS: levETIRAcetam 500 MG TABLET PO SCH ×2 (09:02→21:18)
[2018-05-22] MEDS: MULTIVITAMINS TAB 1 TABLET PO SCH (09:02)
[2018-05-22] MEDS: ASPIRIN 81 MG TAB.CHEW PO SCH (09:02)
[2018-05-22] MEDS: FOLIC ACID 1 MG TABLET PO SCH (09:02)
[2018-05-22] MEDS: CALCIUM CARBONATE/VITAMIN D3 1 TAB TABLET PO SCH (09:02)
[2018-05-22] MEDS: GABAPENTIN 300 MG CAPSULE PO SCH ×3 (09:02→21:17)
[2018-05-22] MEDS: NORPACE PO SCH ×3 (09:04→21:48)
[2018-05-22] MEDS: SILVER SULFADIAZINE 1%, 25 GM TOPICAL CREAM (SSD) TP SCH (09:06)
[2018-05-22 09:44] LABS: CALCIUM 8.2 mg/dL (8.4-11.0); CREATININE 0.62 mg/dL (0.55-1.30); POTASSIUM 3.4 mmol/L (3.5-5.1)
[2018-05-22 09:47] LABS: ALBUMIN 1.9 g/dL (3.4-4.8); TOTAL BILIRUBIN 0.5 mg/dL (0.0-1.0)
[2018-05-22 11:19] LABS: NEUTROPHILS % (AUTO) 76.3 % (40.0-70.0)
[2018-05-22] MEDS: ALBUTEROL SULFATE 0.083% 2.5 MG/3 ML VIAL.NEB INH PRN (11:31)
[2018-05-22 12:06] VITALS: BP_SYST 105
[2018-05-22] MEDS ORDERED: *TPN PER PHARMACY XX PRN (17:00)
[2018-05-22] MEDS ORDERED: DEXTROSE 50% JECT 50 ML DISP.SYRIN IVP PRN (17:00)
[2018-05-22] MEDS: NACL 0.9% 1,000 ML IV SCH (17:27)
[2018-05-22] MEDS: HYDROcodone/ACETAMIN 10-325 MG TAB PO PRN (19:53)
[2018-05-22] MEDS: LEVOFLOXACIN 500 MG/D5W 100 ML IV SCH (22:57)
[2018-05-23] VITALS (11 sets, daily range): BP systolic 91–162
[2018-05-23] MEDS: PANTOPRAZOLE SODIUM 40 MG in NS 50 ML IV SCH ×5 (01:25→22:18)
[2018-05-23] MEDS: HYDROmorphone 2 MG/ML VIAL IVP PRN ×6 (03:16→21:15)
[2018-05-23] MEDS: metroNIDAZOLE 500 mg/NS 100 ML IV SCH ×3 (06:14→23:50)
[2018-05-23 07:46] LABS: BASOPHILS % (AUTO) 0.6 % (0.0-2.0); EOSINOPHILS # (AUTO) 0.1 K/uL (0.0-0.4); EOSINOPHILS % (AUTO) 1.8 % (0.0-4.0); HEMATOCRIT 24.2 % (36-54); HEMOGLOBIN 7.7 g/dL (14.0-18.0); LYMPHOCYTES # (AUTO) 0.8 K/uL (1.0-5.5); LYMPHOCYTES % (AUTO) 10.5 % (20.5-51.5); MEAN CORPUSCULAR HEMOGLOBIN 29 pg (27-31); MEAN CORPUSCULAR HGB CONC 32 % (32-36); MONOCYTES # (AUTO) 1.1 K/uL (0.0-1.0); MONOCYTES % (AUTO) 14.5 % (1.7-9.3); NEUTROPHILS # (AUTO) 5.8 K/uL (1.8-7.7); NEUTROPHILS % (AUTO) 72.6 % (40.0-70.0); PLATELET COUNT (AUTO) 263 K/uL (130-430); RED BLOOD CELL COUNT(AUTO) 2.62 MIL/uL (4.2-6.2); RED CELL DISTRIBUTION WIDTH 15.2 % (9.0-15.0); WHITE BLOOD COUNT (AUTO) 7.8 K/uL (4.8-10.8)
[2018-05-23 07:47] LABS: MEAN CORPUSCULAR VOLUME 92 fL (79.0-98.0)
[2018-05-23 07:47] LABS: ALBUMIN 1.9 g/dL (3.4-4.8); CALCIUM 8.6 mg/dL (8.4-11.0); CREATININE 0.65 mg/dL (0.55-1.30); POTASSIUM 3.6 mmol/L (3.5-5.1); TOTAL BILIRUBIN 0.5 mg/dL (0.0-1.0)
[2018-05-23 08:14] LABS: C-REACTIVE PROTEIN QUANT 14.1 mg/dL (0-0.5)
[2018-05-23 08:37] LABS: ERYTHROCYTE SEDIMENTATION RATE 116 MM/HR (0-15)
[2018-05-23] MEDS: ALPRAZolam 0.25 MG TABLET PO SCH ×3 (08:50→21:00)
[2018-05-23] MEDS: GABAPENTIN 300 MG CAPSULE PO SCH ×3 (08:50→21:00)
[2018-05-23] MEDS: NORPACE PO SCH ×3 (08:50→21:00)
[2018-05-23] MEDS: HYDROcodone/ACETAMIN 10-325 MG TAB PO PRN (08:51)
[2018-05-23] MEDS: SUCRALFATE 1 GM TABLET PO SCH ×4 (08:52→21:00)
[2018-05-23] MEDS: FOLIC ACID 1 MG TABLET PO SCH (08:52)
[2018-05-23] MEDS: ASPIRIN 81 MG TAB.CHEW PO SCH (08:52)
[2018-05-23] MEDS: VITAMIN B COMPLEX 1 CAP/TAB PO SCH (08:53)
[2018-05-23] MEDS: MULTIVITAMINS TAB 1 TABLET PO SCH (08:53)
[2018-05-23] MEDS: FERROUS SULFATE 140 MG TABLET.ER PO SCH (08:53)
[2018-05-23] MEDS: levETIRAcetam 500 MG TABLET PO SCH ×2 (08:53→21:00)
[2018-05-23] MEDS: CALCIUM CARBONATE/VITAMIN D3 1 TAB TABLET PO SCH (08:53)
[2018-05-23] MEDS: SILVER SULFADIAZINE 1%, 25 GM TOPICAL CREAM (SSD) TP SCH (08:54)
[2018-05-23] MEDS: NACL 0.9% 1,000 ML IV SCH ×2 (10:59→22:38)
[2018-05-23] MEDS ORDERED: IOHEXOL 100 ML IV ONE (11:18)
[2018-05-23 11:30] LABS: PROTHROMBIN TIME 10.2 SECS (9.5-12.5)
[2018-05-23] MEDS ORDERED: ONDANSETRON HCL 4 MG/2 ML VIAL IVP PRN (18:00)
[2018-05-23] MEDS ORDERED: TPN CENTRAL 0.0001 ML, SODIUM ACETATE 35 MEQ, POTASSIUM CHLORIDE 20 MEQ, K PHOS 9 MM, M... IV SCH ×9 (18:00)
[2018-05-23] MEDS ORDERED: fentaNYL CITRATE/PF 100 MCG/2 ML AMP IVP PRN ×2 (18:00)
[2018-05-23] MEDS ORDERED: FAT EMULSIONS 250 ML IV SCH (18:00)
[2018-05-23] MEDS ORDERED: PROPOFOL DRIP 100 ML IV ONE (20:27)
[2018-05-23] MEDS: PROPOFOL DRIP 100 ML IV PRN (20:57)
[2018-05-23] MEDS: LEVOFLOXACIN 500 MG/D5W 100 ML IV SCH (22:42)
[2018-05-23] MEDS ORDERED: LORazepam 2 MG/ML VIAL ONE (23:00)
[2018-05-23] MEDS ORDERED: LORazepam 2 MG/ML VIAL IVP PRN (23:00)
[2018-05-24] VITALS (29 sets, daily range): BP systolic 106–155
[2018-05-24] MEDS ORDERED: PIPERACILLIN/TAZO 3.375/DEX-IS 50 ML IV SCH
[2018-05-24] MEDS ORDERED: HYDROmorphone 2 MG/ML VIAL ONE (00:38)
[2018-05-24] MEDS: PROPOFOL DRIP 100 ML IV PRN ×4 (00:57→12:12)
[2018-05-24] MEDS ORDERED: PROPOFOL DRIP 100 ML IV ONE ×2 (00:59→03:24)
[2018-05-24] MEDS: PANTOPRAZOLE SODIUM 40 MG in NS 50 ML IV SCH ×5 (02:23→23:05)
[2018-05-24] MEDS: HYDROmorphone 2 MG/ML VIAL IVP PRN ×2 (04:16→07:35)
[2018-05-24] MEDS: metroNIDAZOLE 500 mg/NS 100 ML IV SCH ×2 (05:34→14:52)
[2018-05-24 06:06] LABS: BASOPHILS % (AUTO) 0.1 % (0.0-2.0); EOSINOPHILS % (AUTO) 0.1 % (0.0-4.0); HEMATOCRIT 23.4 % (36-54); HEMOGLOBIN 7.4 g/dL (14.0-18.0); LYMPHOCYTES # (AUTO) 0.4 K/uL (1.0-5.5); LYMPHOCYTES % (AUTO) 6.2 % (20.5-51.5); MEAN CORPUSCULAR HEMOGLOBIN 29 pg (27-31); MEAN CORPUSCULAR HGB CONC 32 % (32-36); MEAN CORPUSCULAR VOLUME 91 fL (79.0-98.0); MONOCYTES # (AUTO) 1.1 K/uL (0.0-1.0); MONOCYTES % (AUTO) 15.8 % (1.7-9.3); NEUTROPHILS # (AUTO) 5.6 K/uL (1.8-7.7); NEUTROPHILS % (AUTO) 77.8 % (40.0-70.0); PLATELET COUNT (AUTO) 275 K/uL (130-430); RED BLOOD CELL COUNT(AUTO) 2.56 MIL/uL (4.2-6.2); RED CELL DISTRIBUTION WIDTH 15.7 % (9.0-15.0); WHITE BLOOD COUNT (AUTO) 7.1 K/uL (4.8-10.8)
[2018-05-24 06:47] LABS: CREATININE 0.57 mg/dL (0.55-1.30); POTASSIUM 3.2 mmol/L (3.5-5.1)
[2018-05-24] MEDS: NORPACE PO SCH ×3 (08:00→21:00)
[2018-05-24 08:39] LABS: PHOSPHORUS 3.8 mg/dL (2.7-4.5)
[2018-05-24] MEDS: GABAPENTIN 300 MG CAPSULE PO SCH ×3 (09:00→21:00)
[2018-05-24] MEDS: VITAMIN B COMPLEX 1 CAP/TAB PO SCH (09:00)
[2018-05-24] MEDS: MULTIVITAMINS TAB 1 TABLET PO SCH (09:00)
[2018-05-24] MEDS: SUCRALFATE 1 GM TABLET PO SCH ×4 (09:00→21:00)
[2018-05-24] MEDS: ASPIRIN 81 MG TAB.CHEW PO SCH (09:00)
[2018-05-24] MEDS: FOLIC ACID 1 MG TABLET PO SCH (09:00)
[2018-05-24] MEDS: FERROUS SULFATE 140 MG TABLET.ER PO SCH (09:00)
[2018-05-24] MEDS: PIPERACILLIN/TAZO 3.375/DEX-IS 50 ML IV SCH ×3 (09:20→21:52)
[2018-05-24] MEDS: levETIRAcetam 500 MG in NS 100 ML IV SCH ×2 (09:21→21:16)
[2018-05-24] MEDS: INSULIN REGULAR, HUMAN 100 UNITS/ML, 10 ML VIAL (novoLIN R) SUBCUT PRN ×2 (09:28→12:08)
[2018-05-24] MEDS: SILVER SULFADIAZINE 1%, 25 GM TOPICAL CREAM (SSD) TP SCH (09:36)
[2018-05-24] MEDS ORDERED: POTASSIUM CHLORIDE 40 MEQ in NS 250 ML IV ONE (09:45)
[2018-05-24] MEDS: HYDROmorphone 1 MG INJ. 1 MG/ML AMPUL IVP PRN ×10 (10:30→23:23)
[2018-05-24] MEDS: LORazepam 2 MG/ML VIAL IVP PRN ×3 (13:15→23:05)
[2018-05-24] MEDS: NACL 0.9% 1,000 ML IV SCH (13:17)
[2018-05-24] MEDS ORDERED: ENOXAPARIN SODIUM 100 MG/ML SYRINGE SUBCUT ONE (17:30)
[2018-05-24] MEDS ORDERED: *LOVENOX 1MG/KG Q12H/PHARMACY XX ONE (17:30)
[2018-05-24] MEDS: FLUCONAZOLE 200 mg/ NS 100 ML IV SCH (17:44)
[2018-05-24] MEDS: FAT EMULSIONS 250 ML IV SCH (17:46)
[2018-05-24] MEDS ORDERED: [UNRECOGNIZED DRUG - OTHER] IV SCH ×11 (18:00)
[2018-05-24] MEDS ORDERED: SODIUM ACETATE IV SCH ×11 (18:00)
[2018-05-24] MEDS ORDERED: K PHOS IV SCH ×11 (18:00)
[2018-05-24] MEDS ORDERED: POTASSIUM CHLORIDE IV SCH ×11 (18:00)
[2018-05-24] MEDS ORDERED: TPN CENTRAL IV SCH ×11 (18:00)
[2018-05-25] VITALS (15 sets, daily range): BP systolic 109–144
[2018-05-25] MEDS: NACL 0.9% 1,000 ML IV SCH ×3 (00:38→13:16)
[2018-05-25] MEDS: HYDROmorphone 1 MG INJ. 1 MG/ML AMPUL IVP PRN ×9 (01:05→23:14)
[2018-05-25] MEDS: PIPERACILLIN/TAZO 3.375/DEX-IS 50 ML IV SCH ×4 (02:50→20:21)
[2018-05-25] MEDS: PANTOPRAZOLE SODIUM 40 MG in NS 50 ML IV SCH ×3 (03:54→09:16)
[2018-05-25 05:08] LABS: BASOPHILS # (AUTO) 0.1 K/uL (0.0-0.2); BASOPHILS % (AUTO) 0.6 % (0.0-2.0); EOSINOPHILS % (AUTO) 0.4 % (0.0-4.0); HEMATOCRIT 25.2 % (36-54); HEMOGLOBIN 8.1 g/dL (14.0-18.0); LYMPHOCYTES # (AUTO) 0.8 K/uL (1.0-5.5); LYMPHOCYTES % (AUTO) 8.4 % (20.5-51.5); MEAN CORPUSCULAR HEMOGLOBIN 29 pg (27-31); MEAN CORPUSCULAR HGB CONC 32 % (32-36); MEAN CORPUSCULAR VOLUME 91 fL (79.0-98.0); MONOCYTES # (AUTO) 1.3 K/uL (0.0-1.0); MONOCYTES % (AUTO) 12.6 % (1.7-9.3); NEUTROPHILS # (AUTO) 7.9 K/uL (1.8-7.7); PLATELET COUNT (AUTO) 331 K/uL (130-430); RED BLOOD CELL COUNT(AUTO) 2.78 MIL/uL (4.2-6.2); WHITE BLOOD COUNT (AUTO) 10.1 K/uL (4.8-10.8)
[2018-05-25 05:27] LABS: ALBUMIN 1.7 g/dL (3.4-4.8); CALCIUM 8.1 mg/dL (8.4-11.0); CREATININE 0.59 mg/dL (0.55-1.30); PHOSPHORUS 2.7 mg/dL (2.7-4.5); POTASSIUM 3.1 mmol/L (3.5-5.1); TOTAL BILIRUBIN 0.4 mg/dL (0.0-1.0)
[2018-05-25] MEDS ORDERED: GLUCOSE 15 GM GEL (in 37.5 GM TUBE) PO PRN ×2 (07:45)
[2018-05-25] MEDS ORDERED: DEXTROSE 50%-WATER 50 ML DISP.SYRIN IVP PRN ×2 (07:45)
[2018-05-25] MEDS ORDERED: ENOXAPARIN SODIUM 100 MG/ML SYRINGE SUBCUT SCH (09:00)
[2018-05-25] MEDS: GABAPENTIN 300 MG CAPSULE PO SCH ×3 (09:00→21:00)
[2018-05-25] MEDS: SUCRALFATE 1 GM TABLET PO SCH ×4 (09:00→21:00)
[2018-05-25] MEDS: LORazepam 2 MG/ML VIAL IVP PRN (09:10)
[2018-05-25] MEDS: levETIRAcetam 500 MG in NS 100 ML IV SCH ×2 (09:11→20:18)
[2018-05-25] MEDS: SILVER SULFADIAZINE 1%, 25 GM TOPICAL CREAM (SSD) TP SCH (09:17)
[2018-05-25] MEDS ORDERED: LORazepam 2 MG/ML VIAL IVP PRN (10:30)
[2018-05-25] MEDS ORDERED: HYDROmorphone 1 MG INJ. 1 MG/ML AMPUL IVP PRN (10:45)
[2018-05-25] MEDS ORDERED: POTASSIUM CHLORIDE 40 MEQ in NS 250 ML IV ONE (11:30)
[2018-05-25] MEDS: NORPACE PO SCH ×3 (12:00→21:00)
[2018-05-25] MEDS: MULTIVITAMINS TAB 1 TABLET PO SCH (12:26)
[2018-05-25] MEDS: ASPIRIN 81 MG TAB.CHEW PO SCH (12:27)
[2018-05-25] MEDS: FOLIC ACID 1 MG TABLET PO SCH (12:27)
[2018-05-25] MEDS: VITAMIN B COMPLEX 1 CAP/TAB PO SCH (12:28)
[2018-05-25] MEDS: FERROUS SULFATE 140 MG TABLET.ER PO SCH (12:29)
[2018-05-25] MEDS: FAT EMULSIONS 250 ML IV SCH (15:10)
[2018-05-25] MEDS: KETOROLAC TROMETHAMINE 15 MG VIAL IVP PRN (16:26)
[2018-05-25] MEDS: FLUCONAZOLE 200 mg/ NS 100 ML IV SCH (16:26)
[2018-05-25] MEDS ORDERED: SODIUM ACETATE IV SCH ×11 (18:00)
[2018-05-25] MEDS ORDERED: K PHOS IV SCH ×11 (18:00)
[2018-05-25] MEDS ORDERED: [UNRECOGNIZED DRUG - OTHER] IV SCH ×11 (18:00)
[2018-05-25] MEDS ORDERED: POTASSIUM CHLORIDE IV SCH ×11 (18:00)
[2018-05-25] MEDS ORDERED: TPN CENTRAL IV SCH ×11 (18:00)
[2018-05-25] MEDS: K PHOS IV SCH ×11 (18:12)
[2018-05-25] MEDS: TPN CENTRAL IV SCH ×11 (18:12)
[2018-05-25] MEDS: SODIUM ACETATE IV SCH ×11 (18:12)
[2018-05-25] MEDS: [UNRECOGNIZED DRUG - OTHER] IV SCH ×11 (18:12)
[2018-05-25] MEDS: POTASSIUM CHLORIDE IV SCH ×11 (18:12)
[2018-05-25] MEDS: INSULIN REGULAR, HUMAN 100 UNITS/ML, 10 ML VIAL (novoLIN R) SUBCUT PRN (20:33)
[2018-05-26 01:09] VITALS: BP_SYST 143
[2018-05-26] MEDS: HYDROmorphone 1 MG INJ. 1 MG/ML AMPUL IVP PRN ×8 (03:13→22:04)
[2018-05-26] MEDS: NACL 0.9% 1,000 ML IV SCH (03:40)
[2018-05-26] MEDS: FAT EMULSIONS 250 ML IV SCH ×2 (03:43→15:08)
[2018-05-26] MEDS: PIPERACILLIN/TAZO 3.375/DEX-IS 50 ML IV SCH ×4 (03:44→19:43)
[2018-05-26 08:07] LABS: BASOPHILS # (AUTO) 0.1 K/uL (0.0-0.2); BASOPHILS % (AUTO) 0.8 % (0.0-2.0); EOSINOPHILS # (AUTO) 0.2 K/uL (0.0-0.4); EOSINOPHILS % (AUTO) 1.9 % (0.0-4.0); HEMATOCRIT 24.4 % (36-54); LYMPHOCYTES % (AUTO) 8.5 % (20.5-51.5); MEAN CORPUSCULAR HEMOGLOBIN 29 pg (27-31); MEAN CORPUSCULAR HGB CONC 33 % (32-36); MEAN CORPUSCULAR VOLUME 90 fL (79.0-98.0); MONOCYTES % (AUTO) 8.4 % (1.7-9.3); NEUTROPHILS # (AUTO) 9.2 K/uL (1.8-7.7); NEUTROPHILS % (AUTO) 80.4 % (40.0-70.0); PLATELET COUNT (AUTO) 390 K/uL (130-430); RED BLOOD CELL COUNT(AUTO) 2.73 MIL/uL (4.2-6.2); RED CELL DISTRIBUTION WIDTH 15.3 % (9.0-15.0); WHITE BLOOD COUNT (AUTO) 11.5 K/uL (4.8-10.8)
[2018-05-26 08:22] LABS: ALBUMIN 1.6 g/dL (3.4-4.8); CALCIUM 8.1 mg/dL (8.4-11.0); CREATININE 0.57 mg/dL (0.55-1.30); POTASSIUM 4.1 mmol/L (3.5-5.1); TOTAL BILIRUBIN 0.2 mg/dL (0.0-1.0)
[2018-05-26] MEDS: KETOROLAC TROMETHAMINE 15 MG VIAL IVP PRN ×2 (08:56→14:38)
[2018-05-26 08:59] VITALS: BP_SYST 155
[2018-05-26 09:01] VITALS: BP_SYST 143
[2018-05-26] MEDS: SUCRALFATE 1 GM TABLET PO SCH ×4 (09:04→19:52)
[2018-05-26] MEDS: NORPACE PO SCH ×3 (09:04→19:53)
[2018-05-26] MEDS: GABAPENTIN 300 MG CAPSULE PO SCH ×3 (09:04→19:52)
[2018-05-26] MEDS: ASPIRIN 81 MG TAB.CHEW PO SCH (09:05)
[2018-05-26] MEDS: VITAMIN B COMPLEX 1 CAP/TAB PO SCH (09:05)
[2018-05-26] MEDS: MULTIVITAMINS TAB 1 TABLET PO SCH (09:05)
[2018-05-26] MEDS: FERROUS SULFATE 140 MG TABLET.ER PO SCH (09:06)
[2018-05-26] MEDS: FOLIC ACID 1 MG TABLET PO SCH (09:06)
[2018-05-26] MEDS: SILVER SULFADIAZINE 1%, 25 GM TOPICAL CREAM (SSD) TP SCH (09:06)
[2018-05-26] MEDS: PANTOPRAZOLE SODIUM 40 MG/VIAL (PROTONIX) IVP SCH (09:07)
[2018-05-26] MEDS: ENOXAPARIN SODIUM 40 MG/0.4 ML SYRINGE SUBCUT SCH (09:10)
[2018-05-26] MEDS: levETIRAcetam 500 MG in NS 100 ML IV SCH ×2 (10:10→21:19)
[2018-05-26 11:01] LABS: PHOSPHORUS 3.6 mg/dL (2.7-4.5)
[2018-05-26 11:16] VITALS: BP_SYST 127
[2018-05-26] MEDS ORDERED: VANCOMYCIN HCL 1 GM/NS PREMIX 250 ML IV ONE (12:00)
[2018-05-26] MEDS: FLUCONAZOLE 200 mg/ NS 100 ML IV SCH (16:45)
[2018-05-26] MEDS ORDERED: LR 1,000 ML IV.SOLN IV ONE (16:50)
[2018-05-26] MEDS ORDERED: LIDOCAINE MPF 2% 20 MG/1 ML, 5 ML VIAL INH ONE (16:50)
[2018-05-26] MEDS ORDERED: BUPIVACAINE /PF 0.5% 30 ML VIAL INJ ONE (16:50)
[2018-05-26] MEDS ORDERED: PIPERACILLIN/TAZOBACTAM 3.375 GM/VIAL (ZOSYN) IV ONE (16:50)
[2018-05-26] MEDS ORDERED: MIDAZOLAM HCL 5 MG/5 ML VIAL IVP ONE (16:50)
[2018-05-26] MEDS ORDERED: fentaNYL CITRATE 250 MCG/5 ML AMP IV ONE (16:50)
[2018-05-26] MEDS ORDERED: WATER FOR IRRIGATION,STERILE 1,000 ML IRRIG.SOLN IR ONE (16:50)
[2018-05-26] MEDS ORDERED: PROPOFOL 200MG/ 20ML VIAL (DIPRIVAN) IV ONE (16:50)
[2018-05-26] MEDS ORDERED: SEVOFLURANE 15 MIN GAS INH ONE (16:50)
[2018-05-26] MEDS ORDERED: ROCURONIUM BROMIDE 10 MG/ML (ZEMURON) IV ONE (16:50)
[2018-05-26 16:53] VITALS: BP_SYST 113
[2018-05-26] MEDS: [UNRECOGNIZED DRUG - OTHER] IV SCH ×11 (17:40)
[2018-05-26] MEDS: K PHOS IV SCH ×11 (17:40)
[2018-05-26] MEDS: SODIUM ACETATE IV SCH ×11 (17:40)
[2018-05-26] MEDS: TPN CENTRAL IV SCH ×11 (17:40)
[2018-05-26] MEDS: POTASSIUM CHLORIDE IV SCH ×11 (17:40)
[2018-05-26 20:00] VITALS: BP_SYST 121
[2018-05-27] VITALS (7 sets, daily range): BP systolic 119–139
[2018-05-27] MEDS: HYDROmorphone 1 MG INJ. 1 MG/ML AMPUL IVP PRN ×12 (00:08→22:35)
[2018-05-27] MEDS: PIPERACILLIN/TAZO 3.375/DEX-IS 50 ML IV SCH ×4 (01:55→20:30)
[2018-05-27] MEDS: NACL 0.9% 1,000 ML IV SCH (01:56)
[2018-05-27] MEDS: FAT EMULSIONS 250 ML IV SCH ×2 (04:05→16:24)
[2018-05-27 07:30] LABS: CREATININE 0.76 mg/dL (0.55-1.30); POTASSIUM 3.6 mmol/L (3.5-5.1)
[2018-05-27 07:36] LABS: PHOSPHORUS 3.9 mg/dL (2.7-4.5)
[2018-05-27 08:10] LABS: BASOPHILS # (AUTO) 0.1 K/uL (0.0-0.2); BASOPHILS % (AUTO) 0.8 % (0.0-2.0); EOSINOPHILS # (AUTO) 0.3 K/uL (0.0-0.4); EOSINOPHILS % (AUTO) 2.5 % (0.0-4.0); HEMATOCRIT 26.3 % (36-54); HEMOGLOBIN 8.6 g/dL (14.0-18.0); LYMPHOCYTES # (AUTO) 1.1 K/uL (1.0-5.5); LYMPHOCYTES % (AUTO) 9.2 % (20.5-51.5); MEAN CORPUSCULAR HEMOGLOBIN 30 pg (27-31); MEAN CORPUSCULAR HGB CONC 33 % (32-36); MEAN CORPUSCULAR VOLUME 92 fL (79.0-98.0); MONOCYTES # (AUTO) 1.1 K/uL (0.0-1.0); MONOCYTES % (AUTO) 9.3 % (1.7-9.3); NEUTROPHILS # (AUTO) 9.4 K/uL (1.8-7.7); NEUTROPHILS % (AUTO) 78.2 % (40.0-70.0); PLATELET COUNT (AUTO) 448 K/uL (130-430); RED BLOOD CELL COUNT(AUTO) 2.85 MIL/uL (4.2-6.2); RED CELL DISTRIBUTION WIDTH 16.4 % (9.0-15.0)
[2018-05-27] MEDS: MULTIVITAMINS TAB 1 TABLET PO SCH (08:16)
[2018-05-27] MEDS: VITAMIN B COMPLEX 1 CAP/TAB PO SCH (08:16)
[2018-05-27] MEDS: GABAPENTIN 300 MG CAPSULE PO SCH ×3 (08:17→22:14)
[2018-05-27] MEDS: SUCRALFATE 1 GM TABLET PO SCH ×4 (08:17→22:14)
[2018-05-27] MEDS: PANTOPRAZOLE SODIUM 40 MG/VIAL (PROTONIX) IVP SCH (08:17)
[2018-05-27] MEDS: ASPIRIN 81 MG TAB.CHEW PO SCH (08:17)
[2018-05-27] MEDS: FOLIC ACID 1 MG TABLET PO SCH (08:17)
[2018-05-27] MEDS: FERROUS SULFATE 140 MG TABLET.ER PO SCH (08:18)
[2018-05-27] MEDS: NORPACE PO SCH ×3 (08:20→22:14)
[2018-05-27] MEDS: ENOXAPARIN SODIUM 40 MG/0.4 ML SYRINGE SUBCUT SCH (08:21)
[2018-05-27] MEDS: SILVER SULFADIAZINE 1%, 25 GM TOPICAL CREAM (SSD) TP SCH (08:37)
[2018-05-27] MEDS: levETIRAcetam 500 MG in NS 100 ML IV SCH ×2 (09:12→22:12)
[2018-05-27] MEDS: IPRATROPIUM BROM 0.5 MG/2.5 ML VIAL.NEB (ATROVENT) INH SCH ×2 (15:32→19:40)
[2018-05-27] MEDS: ALBUTEROL SULFATE 0.083% 2.5 MG/3 ML VIAL.NEB INH SCH ×2 (15:32→19:40)
[2018-05-27] MEDS: FLUCONAZOLE 200 mg/ NS 100 ML IV SCH (16:26)
[2018-05-27] MEDS ORDERED: POTASSIUM CHLORIDE IV SCH ×11 (18:00)
[2018-05-27] MEDS ORDERED: K PHOS IV SCH ×11 (18:00)
[2018-05-27] MEDS ORDERED: [UNRECOGNIZED DRUG - OTHER] IV SCH ×11 (18:00)
[2018-05-27] MEDS ORDERED: TPN CENTRAL IV SCH ×11 (18:00)
[2018-05-27] MEDS ORDERED: SODIUM ACETATE IV SCH ×11 (18:00)
[2018-05-28 00:44] VITALS: BP_SYST 110
[2018-05-28] MEDS: HYDROmorphone 1 MG INJ. 1 MG/ML AMPUL IVP PRN ×11 (01:10→22:24)
[2018-05-28] MEDS: PIPERACILLIN/TAZO 3.375/DEX-IS 50 ML IV SCH ×4 (03:16→20:09)
[2018-05-28] MEDS: FAT EMULSIONS 250 ML IV SCH ×2 (05:19→18:14)
[2018-05-28 07:00] LABS: BASOPHILS # (AUTO) 0.1 K/uL (0.0-0.2); BASOPHILS % (AUTO) 0.5 % (0.0-2.0); EOSINOPHILS # (AUTO) 0.2 K/uL (0.0-0.4); EOSINOPHILS % (AUTO) 1.5 % (0.0-4.0); HEMATOCRIT 24.5 % (36-54); HEMOGLOBIN 7.9 g/dL (14.0-18.0); LYMPHOCYTES # (AUTO) 1.2 K/uL (1.0-5.5); LYMPHOCYTES % (AUTO) 9.1 % (20.5-51.5); MEAN CORPUSCULAR HEMOGLOBIN 29 pg (27-31); MEAN CORPUSCULAR HGB CONC 32 % (32-36); MEAN CORPUSCULAR VOLUME 90 fL (79.0-98.0); MONOCYTES # (AUTO) 1.4 K/uL (0.0-1.0); MONOCYTES % (AUTO) 11.1 % (1.7-9.3); NEUTROPHILS # (AUTO) 10.1 K/uL (1.8-7.7); NEUTROPHILS % (AUTO) 77.8 % (40.0-70.0); PLATELET COUNT (AUTO) 507 K/uL (130-430); RED BLOOD CELL COUNT(AUTO) 2.72 MIL/uL (4.2-6.2); RED CELL DISTRIBUTION WIDTH 16.2 % (9.0-15.0)
[2018-05-28] MEDS: ALBUTEROL SULFATE 0.083% 2.5 MG/3 ML VIAL.NEB INH SCH ×3 (07:26→20:15)
[2018-05-28] MEDS: IPRATROPIUM BROM 0.5 MG/2.5 ML VIAL.NEB (ATROVENT) INH SCH ×3 (07:27→20:15)
[2018-05-28 08:00] VITALS: BP_SYST 138
[2018-05-28] MEDS: NORPACE PO SCH ×3 (08:26→20:10)
[2018-05-28] MEDS: FERROUS SULFATE 140 MG TABLET.ER PO SCH (08:27)
[2018-05-28] MEDS: PANTOPRAZOLE SODIUM 40 MG/VIAL (PROTONIX) IVP SCH (08:27)
[2018-05-28] MEDS: levETIRAcetam 500 MG in NS 100 ML IV SCH ×2 (08:27→20:09)
[2018-05-28] MEDS: GABAPENTIN 300 MG CAPSULE PO SCH ×3 (08:28→20:09)
[2018-05-28] MEDS: SUCRALFATE 1 GM TABLET PO SCH ×4 (08:28→20:09)
[2018-05-28] MEDS: ASPIRIN 81 MG TAB.CHEW PO SCH (08:28)
[2018-05-28] MEDS: MULTIVITAMINS TAB 1 TABLET PO SCH (08:28)
[2018-05-28] MEDS: VITAMIN B COMPLEX 1 CAP/TAB PO SCH (08:28)
[2018-05-28] MEDS: FOLIC ACID 1 MG TABLET PO SCH (08:28)
[2018-05-28] MEDS: SILVER SULFADIAZINE 1%, 25 GM TOPICAL CREAM (SSD) TP SCH (08:28)
[2018-05-28] MEDS: ENOXAPARIN SODIUM 40 MG/0.4 ML SYRINGE SUBCUT SCH (08:30)
[2018-05-28 08:39] LABS: CALCIUM 7.9 mg/dL (8.4-11.0); CREATININE 0.68 mg/dL (0.55-1.30); POTASSIUM 3.9 mmol/L (3.5-5.1)
[2018-05-28 08:45] LABS: ALBUMIN 1.7 g/dL (3.4-4.8); TOTAL BILIRUBIN 0.3 mg/dL (0.0-1.0)
[2018-05-28] MEDS ORDERED: MINERAL OIL 30 ML UDC PO ONE (09:00)
[2018-05-28] MEDS: DOCUSATE SODIUM 100 MG CAPSULE PO SCH ×2 (10:05→20:09)
[2018-05-28 12:23] VITALS: BP_SYST 127
[2018-05-28 16:21] VITALS: BP_SYST 120
[2018-05-28] MEDS: FLUCONAZOLE 200 mg/ NS 100 ML IV SCH (17:37)
[2018-05-28] MEDS ORDERED: K PHOS IV SCH ×10 (18:00)
[2018-05-28] MEDS ORDERED: POTASSIUM CHLORIDE IV SCH ×10 (18:00)
[2018-05-28] MEDS ORDERED: [UNRECOGNIZED DRUG - OTHER] IV SCH ×10 (18:00)
[2018-05-28] MEDS ORDERED: TPN CENTRAL IV SCH ×10 (18:00)
[2018-05-28 19:20] VITALS: BP_SYST 118
[2018-05-28 23:26] VITALS: BP_SYST 118
[2018-05-29] MEDS: HYDROmorphone 1 MG INJ. 1 MG/ML AMPUL IVP PRN ×5 (00:45→09:34)
[2018-05-29] MEDS: PIPERACILLIN/TAZO 3.375/DEX-IS 50 ML IV SCH ×4 (02:46→20:09)
[2018-05-29] MEDS: FAT EMULSIONS 250 ML IV SCH (05:33)
[2018-05-29 06:49] LABS: ALBUMIN 1.9 g/dL (3.4-4.8); CALCIUM 8.5 mg/dL (8.4-11.0); CREATININE 0.73 mg/dL (0.55-1.30); PHOSPHORUS 4.2 mg/dL (2.7-4.5); POTASSIUM 3.7 mmol/L (3.5-5.1); TOTAL BILIRUBIN 0.4 mg/dL (0.0-1.0)
[2018-05-29] MEDS: IPRATROPIUM BROM 0.5 MG/2.5 ML VIAL.NEB (ATROVENT) INH SCH ×2 (07:00→20:49)
[2018-05-29] MEDS: ALBUTEROL SULFATE 0.083% 2.5 MG/3 ML VIAL.NEB INH SCH ×2 (07:00→20:49)
[2018-05-29 07:20] LABS: BASOPHILS # (AUTO) 0.1 K/uL (0.0-0.2); BASOPHILS % (AUTO) 0.4 % (0.0-2.0); EOSINOPHILS # (AUTO) 0.1 K/uL (0.0-0.4); EOSINOPHILS % (AUTO) 0.9 % (0.0-4.0); HEMATOCRIT 26.1 % (36-54); HEMOGLOBIN 8.6 g/dL (14.0-18.0); LYMPHOCYTES # (AUTO) 1.2 K/uL (1.0-5.5); LYMPHOCYTES % (AUTO) 8.4 % (20.5-51.5); MEAN CORPUSCULAR HEMOGLOBIN 30 pg (27-31); MEAN CORPUSCULAR HGB CONC 33 % (32-36); MEAN CORPUSCULAR VOLUME 90 fL (79.0-98.0); MONOCYTES # (AUTO) 1.3 K/uL (0.0-1.0); MONOCYTES % (AUTO) 9.1 % (1.7-9.3); NEUTROPHILS # (AUTO) 11.1 K/uL (1.8-7.7); PLATELET COUNT (AUTO) 510 K/uL (130-430); RED BLOOD CELL COUNT(AUTO) 2.88 MIL/uL (4.2-6.2); RED CELL DISTRIBUTION WIDTH 16.2 % (9.0-15.0); WHITE BLOOD COUNT (AUTO) 13.8 K/uL (4.8-10.8)
[2018-05-29 08:10] VITALS: BP_SYST 127
[2018-05-29] MEDS: DOCUSATE SODIUM 100 MG CAPSULE PO SCH ×2 (09:31→20:34)
[2018-05-29] MEDS: levETIRAcetam 500 MG in NS 100 ML IV SCH ×2 (09:31→20:09)
[2018-05-29] MEDS: GABAPENTIN 300 MG CAPSULE PO SCH ×3 (09:31→20:08)
[2018-05-29] MEDS: FOLIC ACID 1 MG TABLET PO SCH (09:31)
[2018-05-29] MEDS: MULTIVITAMINS TAB 1 TABLET PO SCH (09:31)
[2018-05-29] MEDS: ASPIRIN 81 MG TAB.CHEW PO SCH (09:31)
[2018-05-29] MEDS: SUCRALFATE 1 GM TABLET PO SCH ×4 (09:31→20:08)
[2018-05-29] MEDS: VITAMIN B COMPLEX 1 CAP/TAB PO SCH (09:31)
[2018-05-29] MEDS: PANTOPRAZOLE SODIUM 40 MG/VIAL (PROTONIX) IVP SCH (09:32)
[2018-05-29] MEDS: NORPACE PO SCH ×3 (09:33→20:11)
[2018-05-29] MEDS: FERROUS SULFATE 140 MG TABLET.ER PO SCH (09:35)
[2018-05-29] MEDS: ENOXAPARIN SODIUM 40 MG/0.4 ML SYRINGE SUBCUT SCH (09:53)
[2018-05-29] MEDS: SILVER SULFADIAZINE 1%, 25 GM TOPICAL CREAM (SSD) TP SCH (09:56)
[2018-05-29] MEDS ORDERED: HYDROmorphone 2 MG/ML VIAL IVP PRN (10:00)
[2018-05-29 11:55] LABS: NEUTROPHILS % (AUTO) 81.2 % (40.0-70.0)
[2018-05-29 12:00] VITALS: BP_SYST 124
[2018-05-29] MEDS: HYDROcodone/ACETAMIN 10-325 MG TAB PO PRN (15:52)
[2018-05-29 16:45] VITALS: BP_SYST 124
[2018-05-29] MEDS: HYDROmorphone 2 MG/ML VIAL IVP PRN ×3 (16:48→23:15)
[2018-05-29] MEDS: FLUCONAZOLE 200 mg/ NS 100 ML IV SCH (16:48)
[2018-05-29] MEDS: INSULIN REGULAR, HUMAN 100 UNITS/ML, 10 ML VIAL (novoLIN R) SUBCUT PRN (17:54)
[2018-05-29] MEDS ORDERED: POTASSIUM CHLORIDE IV SCH ×10 (18:00)
[2018-05-29] MEDS ORDERED: [UNRECOGNIZED DRUG - OTHER] IV SCH ×10 (18:00)
[2018-05-29] MEDS ORDERED: TPN CENTRAL IV SCH ×10 (18:00)
[2018-05-29] MEDS ORDERED: K PHOS IV SCH ×10 (18:00)
[2018-05-29 18:26] VITALS: BP_SYST 124
[2018-05-29 20:00] VITALS: BP_SYST 117
[2018-05-30 00:18] VITALS: BP_SYST 116
[2018-05-30] MEDS: HYDROmorphone 2 MG/ML VIAL IVP PRN ×5 (02:37→22:44)
[2018-05-30] MEDS: PIPERACILLIN/TAZO 3.375/DEX-IS 50 ML IV SCH ×4 (02:37→22:19)
[2018-05-30] MEDS: HYDROcodone/ACETAMIN 10-325 MG TAB PO PRN ×2 (05:45→16:32)
[2018-05-30 07:19] LABS: BASOPHILS # (AUTO) 0.1 K/uL (0.0-0.2); BASOPHILS % (AUTO) 0.5 % (0.0-2.0); EOSINOPHILS # (AUTO) 0.1 K/uL (0.0-0.4); EOSINOPHILS % (AUTO) 1.2 % (0.0-4.0); HEMATOCRIT 26.5 % (36-54); HEMOGLOBIN 8.5 g/dL (14.0-18.0); LYMPHOCYTES # (AUTO) 1.3 K/uL (1.0-5.5); MEAN CORPUSCULAR HEMOGLOBIN 29 pg (27-31); MEAN CORPUSCULAR HGB CONC 32 % (32-36); MEAN CORPUSCULAR VOLUME 89 fL (79.0-98.0); MONOCYTES # (AUTO) 1.2 K/uL (0.0-1.0); MONOCYTES % (AUTO) 9.9 % (1.7-9.3); NEUTROPHILS # (AUTO) 8.9 K/uL (1.8-7.7); NEUTROPHILS % (AUTO) 77.4 % (40.0-70.0); PLATELET COUNT (AUTO) 546 K/uL (130-430); RED BLOOD CELL COUNT(AUTO) 2.97 MIL/uL (4.2-6.2); RED CELL DISTRIBUTION WIDTH 16.6 % (9.0-15.0); WHITE BLOOD COUNT (AUTO) 11.6 K/uL (4.8-10.8)
[2018-05-30 07:52] LABS: ALBUMIN 1.9 g/dL (3.4-4.8); CALCIUM 9.1 mg/dL (8.4-11.0); CREATININE 0.66 mg/dL (0.55-1.30); PHOSPHORUS 4.5 mg/dL (2.7-4.5); POTASSIUM 4.6 mmol/L (3.5-5.1); TOTAL BILIRUBIN 0.5 mg/dL (0.0-1.0)
[2018-05-30 08:00] VITALS: BP_SYST 114
[2018-05-30] MEDS: IPRATROPIUM BROM 0.5 MG/2.5 ML VIAL.NEB (ATROVENT) INH SCH ×3 (08:26→20:13)
[2018-05-30] MEDS: ALBUTEROL SULFATE 0.083% 2.5 MG/3 ML VIAL.NEB INH SCH ×3 (08:26→20:13)
[2018-05-30] MEDS: DOCUSATE SODIUM 100 MG CAPSULE PO SCH ×2 (09:00→22:10)
[2018-05-30] MEDS: NORPACE PO SCH ×3 (09:30→22:10)
[2018-05-30] MEDS: ASPIRIN 81 MG TAB.CHEW PO SCH (09:31)
[2018-05-30] MEDS: VITAMIN B COMPLEX 1 CAP/TAB PO SCH (09:31)
[2018-05-30] MEDS: MULTIVITAMINS TAB 1 TABLET PO SCH (09:31)
[2018-05-30] MEDS: GABAPENTIN 300 MG CAPSULE PO SCH ×3 (09:31→22:09)
[2018-05-30] MEDS: FERROUS SULFATE 140 MG TABLET.ER PO SCH (09:31)
[2018-05-30] MEDS: SUCRALFATE 1 GM TABLET PO SCH ×4 (09:31→22:09)
[2018-05-30] MEDS: FOLIC ACID 1 MG TABLET PO SCH (09:31)
[2018-05-30] MEDS: PANTOPRAZOLE SODIUM 40 MG/VIAL (PROTONIX) IVP SCH (09:33)
[2018-05-30] MEDS: ENOXAPARIN SODIUM 40 MG/0.4 ML SYRINGE SUBCUT SCH (09:37)
[2018-05-30] MEDS: levETIRAcetam 500 MG in NS 100 ML IV SCH ×2 (09:41→23:01)
[2018-05-30] MEDS: SILVER SULFADIAZINE 1%, 25 GM TOPICAL CREAM (SSD) TP SCH (09:44)
[2018-05-30 12:29] VITALS: BP_SYST 109
[2018-05-30] MEDS: FLUCONAZOLE 200 mg/ NS 100 ML IV SCH (16:31)
[2018-05-30 16:52] VITALS: BP_SYST 140
[2018-05-30 20:30] VITALS: BP_SYST 116
[2018-05-30 23:41] VITALS: BP_SYST 104
[2018-05-31] MEDS: HYDROmorphone 2 MG/ML VIAL IVP PRN ×6 (02:03→21:05)
[2018-05-31] MEDS: PIPERACILLIN/TAZO 3.375/DEX-IS 50 ML IV SCH ×4 (02:22→20:52)
[2018-05-31 06:51] LABS: BASOPHILS % (AUTO) 0.4 % (0.0-2.0); EOSINOPHILS # (AUTO) 0.1 K/uL (0.0-0.4); EOSINOPHILS % (AUTO) 1.3 % (0.0-4.0); HEMATOCRIT 26.4 % (36-54); HEMOGLOBIN 8.4 g/dL (14.0-18.0); LYMPHOCYTES # (AUTO) 1.4 K/uL (1.0-5.5); LYMPHOCYTES % (AUTO) 13.2 % (20.5-51.5); MEAN CORPUSCULAR HEMOGLOBIN 28 pg (27-31); MEAN CORPUSCULAR HGB CONC 32 % (32-36); MEAN CORPUSCULAR VOLUME 89 fL (79.0-98.0); MONOCYTES # (AUTO) 1.1 K/uL (0.0-1.0); MONOCYTES % (AUTO) 10.6 % (1.7-9.3); NEUTROPHILS # (AUTO) 7.7 K/uL (1.8-7.7); NEUTROPHILS % (AUTO) 74.5 % (40.0-70.0); PLATELET COUNT (AUTO) 589 K/uL (130-430); RED BLOOD CELL COUNT(AUTO) 2.96 MIL/uL (4.2-6.2); RED CELL DISTRIBUTION WIDTH 16.4 % (9.0-15.0); WHITE BLOOD COUNT (AUTO) 10.3 K/uL (4.8-10.8)
[2018-05-31] MEDS: ALBUTEROL SULFATE 0.083% 2.5 MG/3 ML VIAL.NEB INH SCH ×2 (07:50→15:00)
[2018-05-31] MEDS: IPRATROPIUM BROM 0.5 MG/2.5 ML VIAL.NEB (ATROVENT) INH SCH ×2 (07:50→15:00)
[2018-05-31 08:51] VITALS: BP_SYST 107
[2018-05-31] MEDS: ENOXAPARIN SODIUM 40 MG/0.4 ML SYRINGE SUBCUT SCH (08:54)
[2018-05-31] MEDS: NORPACE PO SCH ×3 (08:56→21:18)
[2018-05-31] MEDS: MULTIVITAMINS TAB 1 TABLET PO SCH (08:56)
[2018-05-31] MEDS: FOLIC ACID 1 MG TABLET PO SCH (08:56)
[2018-05-31] MEDS: SUCRALFATE 1 GM TABLET PO SCH ×4 (08:57→21:03)
[2018-05-31] MEDS: DOCUSATE SODIUM 100 MG CAPSULE PO SCH ×2 (08:57→21:03)
[2018-05-31] MEDS: GABAPENTIN 300 MG CAPSULE PO SCH ×3 (08:57→21:04)
[2018-05-31] MEDS: VITAMIN B COMPLEX 1 CAP/TAB PO SCH (08:57)
[2018-05-31] MEDS: PANTOPRAZOLE SODIUM 40 MG/VIAL (PROTONIX) IVP SCH (08:57)
[2018-05-31] MEDS: ASPIRIN 81 MG TAB.CHEW PO SCH (08:57)
[2018-05-31] MEDS: levETIRAcetam 500 MG in NS 100 ML IV SCH ×2 (08:58→21:21)
[2018-05-31] MEDS: FERROUS SULFATE 140 MG TABLET.ER PO SCH (08:58)
[2018-05-31] MEDS: SILVER SULFADIAZINE 1%, 25 GM TOPICAL CREAM (SSD) TP SCH (09:00)
[2018-05-31 10:30] VITALS: BP_SYST 102
[2018-05-31 13:40] VITALS: BP_SYST 112
[2018-05-31 17:19] VITALS: BP_SYST 102
[2018-05-31] MEDS: LIDOCAINE PATCH 5% 1 EA TP SCH (18:44)
[2018-05-31] MEDS ORDERED: LIDOCAINE PATCH 5% 1 EA TP ONE (18:51)
[2018-05-31 19:31] VITALS: BP_SYST 106
[2018-05-31] MEDS ORDERED: COMMUNICATION ORDER XX ONE (19:45)
[2018-06-01 00:51] VITALS: BP_SYST 123
[2018-06-01] MEDS: PIPERACILLIN/TAZO 3.375/DEX-IS 50 ML IV SCH ×4 (01:02→18:44)
[2018-06-01] MEDS: HYDROmorphone 2 MG/ML VIAL IVP PRN ×7 (01:11→21:43)
[2018-06-01] MEDS: IPRATROPIUM BROM 0.5 MG/2.5 ML VIAL.NEB (ATROVENT) INH SCH ×3 (07:00→21:00)
[2018-06-01] MEDS: ALBUTEROL SULFATE 0.083% 2.5 MG/3 ML VIAL.NEB INH SCH ×3 (07:00→21:00)
[2018-06-01 08:06] VITALS: BP_SYST 104
[2018-06-01] MEDS: ASPIRIN 81 MG TAB.CHEW PO SCH (08:31)
[2018-06-01] MEDS: SUCRALFATE 1 GM TABLET PO SCH ×4 (08:31→21:32)
[2018-06-01] MEDS: NORPACE PO SCH ×3 (08:31→21:34)
[2018-06-01] MEDS: GABAPENTIN 300 MG CAPSULE PO SCH ×3 (08:31→21:33)
[2018-06-01] MEDS: VITAMIN B COMPLEX 1 CAP/TAB PO SCH (08:31)
[2018-06-01] MEDS: FOLIC ACID 1 MG TABLET PO SCH (08:31)
[2018-06-01] MEDS: MULTIVITAMINS TAB 1 TABLET PO SCH (08:31)
[2018-06-01] MEDS: DOCUSATE SODIUM 100 MG CAPSULE PO SCH ×2 (08:31→21:33)
[2018-06-01] MEDS: PANTOPRAZOLE SODIUM 40 MG/VIAL (PROTONIX) IVP SCH (08:32)
[2018-06-01] MEDS: FERROUS SULFATE 140 MG TABLET.ER PO SCH (08:32)
[2018-06-01] MEDS: LIDOCAINE PATCH 5% 1 EA TP SCH (08:32)
[2018-06-01] MEDS: SILVER SULFADIAZINE 1%, 25 GM TOPICAL CREAM (SSD) TP SCH (08:33)
[2018-06-01] MEDS: levETIRAcetam 500 MG in NS 100 ML IV SCH ×2 (08:33→21:36)
[2018-06-01] MEDS: ENOXAPARIN SODIUM 40 MG/0.4 ML SYRINGE SUBCUT SCH (08:34)
[2018-06-01] MEDS ORDERED: FLUCONAZOLE 200 MG TABLET (DIFLUCAN) PO ONE (11:45)
[2018-06-01 12:00] VITALS: BP_SYST 102
[2018-06-01] MEDS: cefTRIAXone 2 GM in D5W 50 ML IV SCH (12:08)
[2018-06-01 16:23] VITALS: BP_SYST 106
[2018-06-01 20:00] VITALS: BP_SYST 113
[2018-06-02] MEDS: HYDROmorphone 2 MG/ML VIAL IVP PRN ×6 (00:43→16:05)
[2018-06-02] MEDS: PIPERACILLIN/TAZO 3.375/DEX-IS 50 ML IV SCH ×4 (00:43→17:08)
[2018-06-02 01:32] VITALS: BP_SYST 108
[2018-06-02] MEDS: ALBUTEROL SULFATE 0.083% 2.5 MG/3 ML VIAL.NEB INH SCH ×2 (07:00→15:00)
[2018-06-02] MEDS: IPRATROPIUM BROM 0.5 MG/2.5 ML VIAL.NEB (ATROVENT) INH SCH ×2 (07:00→15:00)
[2018-06-02 08:41] LABS: BASOPHILS # (AUTO) 0.1 K/uL (0.0-0.2); EOSINOPHILS # (AUTO) 0.2 K/uL (0.0-0.4); EOSINOPHILS % (AUTO) 1.6 % (0.0-4.0); HEMATOCRIT 24.9 % (36-54); HEMOGLOBIN 8.2 g/dL (14.0-18.0); LYMPHOCYTES # (AUTO) 1.7 K/uL (1.0-5.5); LYMPHOCYTES % (AUTO) 14.2 % (20.5-51.5); MEAN CORPUSCULAR HEMOGLOBIN 29 pg (27-31); MEAN CORPUSCULAR HGB CONC 33 % (32-36); MEAN CORPUSCULAR VOLUME 88 fL (79.0-98.0); MONOCYTES # (AUTO) 1.4 K/uL (0.0-1.0); MONOCYTES % (AUTO) 11.5 % (1.7-9.3); NEUTROPHILS # (AUTO) 8.4 K/uL (1.8-7.7); NEUTROPHILS % (AUTO) 71.7 % (40.0-70.0); PLATELET COUNT (AUTO) 683 K/uL (130-430); RED BLOOD CELL COUNT(AUTO) 2.82 MIL/uL (4.2-6.2); RED CELL DISTRIBUTION WIDTH 16.6 % (9.0-15.0); WHITE BLOOD COUNT (AUTO) 11.8 K/uL (4.8-10.8)
[2018-06-02] MEDS: SILVER SULFADIAZINE 1%, 25 GM TOPICAL CREAM (SSD) TP SCH (09:00)
[2018-06-02] MEDS ORDERED: FLUCONAZOLE 200 MG TABLET (DIFLUCAN) PO SCH (09:00)
[2018-06-02] MEDS: LIDOCAINE PATCH 5% 1 EA TP SCH (09:00)
[2018-06-02] MEDS: PANTOPRAZOLE SODIUM 40 MG/VIAL (PROTONIX) IVP SCH (10:03)
[2018-06-02] MEDS: NORPACE PO SCH ×2 (10:03→12:47)
[2018-06-02] MEDS: DOCUSATE SODIUM 100 MG CAPSULE PO SCH (10:04)
[2018-06-02] MEDS: VITAMIN B COMPLEX 1 CAP/TAB PO SCH (10:04)
[2018-06-02] MEDS: ASPIRIN 81 MG TAB.CHEW PO SCH (10:04)
[2018-06-02] MEDS: FOLIC ACID 1 MG TABLET PO SCH (10:04)
[2018-06-02] MEDS: GABAPENTIN 300 MG CAPSULE PO SCH ×2 (10:04→15:13)
[2018-06-02] MEDS: SUCRALFATE 1 GM TABLET PO SCH ×3 (10:04→16:05)
[2018-06-02] MEDS: MULTIVITAMINS TAB 1 TABLET PO SCH (10:04)
[2018-06-02] MEDS: FERROUS SULFATE 140 MG TABLET.ER PO SCH (10:05)
[2018-06-02] MEDS: levETIRAcetam 500 MG in NS 100 ML IV SCH (10:05)
[2018-06-02] MEDS: ENOXAPARIN SODIUM 40 MG/0.4 ML SYRINGE SUBCUT SCH (10:07)
[2018-06-02] MEDS: cefTRIAXone 2 GM in D5W 50 ML IV SCH (11:25)
[2018-06-02 12:50] VITALS: BP_SYST 101
[2018-06-02 16:58] VITALS: BP_SYST 120
[2018-06-02 18:21] VITALS: BP_SYST 123
== END 2018-06-02 18:45 | disposition home health service (06) | DRG 329 ==
LOC: SED 07:02 → STU 09:26 → SMU 05-15 09:31 → SIC 05-23 19:27 → SMU 05-25 14:09
PROVIDERS: ADMIT Family Medicine; ATTEND Family Medicine
PROC: 30233N1 Transfusion of Nonautologous Red Blood Cells into Peripheral Vein, Percutaneous Approach (ICD-10-PCS; 2018-05-13)
PROC: 0DBM8ZZ Excision of Descending Colon, Via Natural or Artificial Opening Endoscopic (ICD-10-PCS; 2018-05-16)
PROC: 0DBA8ZX Excision of Jejunum, Via Natural or Artificial Opening Endoscopic, Diagnostic (ICD-10-PCS; principal; 2018-05-16 07:00)
PROC: 0DBM8ZZ Excision of Descending Colon, Via Natural or Artificial Opening Endoscopic (ICD-10-PCS; 2018-05-19)
PROC: 0DTF0ZZ Resection of Right Large Intestine, Open Approach (ICD-10-PCS; 2018-05-23)
PROC: 0DBL0ZZ Excision of Transverse Colon, Open Approach (ICD-10-PCS; 2018-05-23)
PROC: 30233L1 Transfusion of Nonautologous Fresh Plasma into Peripheral Vein, Percutaneous Approach (ICD-10-PCS; 2018-05-23)
PROC: 30233K1 Transfusion of Nonautologous Frozen Plasma into Peripheral Vein, Percutaneous Approach (ICD-10-PCS; 2018-05-23)
PROC: 02HV33Z Insertion of Infusion Device into Superior Vena Cava, Percutaneous Approach (ICD-10-PCS; 2018-05-23)
PROC: B548ZZA Ultrasonography of Superior Vena Cava, Guidance (ICD-10-PCS; 2018-05-23)
PROC: 30233R1 Transfusion of Nonautologous Platelets into Peripheral Vein, Percutaneous Approach (ICD-10-PCS; 2018-05-24)
PROC: 3E0336Z Introduction of Nutritional Substance into Peripheral Vein, Percutaneous Approach (ICD-10-PCS; 2018-05-24)
PROC: 5A09357 Assistance with Respiratory Ventilation, Less than 24 Consecutive Hours, Continuous Positive Airway Pressure (ICD-10-PCS; 2018-05-24)
DX: K63.1 Perforation of intestine (nontraumatic) (principal); K29.81 Duodenitis with bleeding; K65.8 Other peritonitis; J96.00 Acute respiratory failure, unspecified whether with hypoxia or hypercapnia; E43 Unspecified severe protein-calorie malnutrition; G93.41 Metabolic encephalopathy; J18.9 Pneumonia, unspecified organism; K52.9 Noninfective gastroenteritis and colitis, unspecified; M19.90 Unspecified osteoarthritis, unspecified site; E66.01 Morbid (severe) obesity due to excess calories; E86.0 Dehydration; G89.29 Other chronic pain; Z68.33 Body mass index [BMI] 33.0-33.9, adult; D63.8 Anemia in other chronic diseases classified elsewhere; I95.1 Orthostatic hypotension; K64.8 Other hemorrhoids; M06.9 Rheumatoid arthritis, unspecified; K59.00 Constipation, unspecified; K63.5 Polyp of colon; K64.9 Unspecified hemorrhoids; B96.89 Other specified bacterial agents as the cause of diseases classified elsewhere; M53.3 Sacrococcygeal disorders, not elsewhere classified; R50.82 Postprocedural fever; Z74.01 Bed confinement status; Z82.49 Family history of ischemic heart disease and other diseases of the circulatory system; Z87.891 Personal history of nicotine dependence; Z95.810 Presence of automatic (implantable) cardiac defibrillator; Z98.84 Bariatric surgery status; Z79.899 Other long term (current) drug therapy; Z79.82 Long term (current) use of aspirin; R56.9 Unspecified convulsions
CPT/HCPCS: 36415; 36600; 43239; 45380; 70450-TC; 71045; 72125-TC; 72128; 72131; 76700-TC; 80048; 80053; 82150-TC; 82272; 82306; 82550-TC; 82607; 82728; 82746; 82803-TC; 82962; 83010; 83540-TC; 83550-TC; 83615-TC; 83690-TC; 83735-TC; 83880; 84100-TC; 84443-TC; 84478-TC; 84484; 85025; 85044-TC; 85610-TC; 85651-TC; 85730-TC; 86140; 86870; 86886; 86900; 86901; 86920; 87070; 87070-TC; 87075-TC; 87081; 87186-TC; 87205-TC; 88305; 88307; 88313; 93005; 93306; 94002; 94003; 94010; 94640; 94760; 95816; 97116-GP; 97530-GP; 99285; C1751; C9113; G0378; J0360; J0696; J1170; J1450; J1650; J1815; J1885; J1953; J1956; J2060; J2175; J2250; J2543; J2704; J2916; J3010; J3370; J3475; J3480; J3490; J7030; J7040; J7050; J7060; J7120; J7131; J7613; P9021; P9034; P9059; Q9967

== ENCOUNTER 2018-06-22 11:34 | Inpatient (IN) | payer BC ==
[~2018-06-22] VITALS: Ht 177.8 cm; Wt 94.8 kg
[~2018-06-22 11:34] MED LIST changes: +ALPR0.5T PO; +CALC-823 PO; -CELE50CA PO; +ETAN50DI2 SQ; -Embrel PO; +FERR140T PO; +GABA-531 PO; +HYDR-2489 PO; -HYDR-3610 PO; -METH2.5T PO; +METH25VI32 IJ; -METO50TA7 PO; +MULT-1089 PO; -OXYC-133 PO; +RED600TA PO; +SAW160CA3 PO; +SUCR1TAB78 PO; +VITA1CAP PO; +[UNRECOGNIZED DRUG - CODE] PO
--- NOTE | 2018-06-22 11:38 | NUR ---
Pt placed in bed 5
[2018-06-22 11:39] VITALS: BP_SYST 136
--- NOTE | 2018-06-22 11:40 | NUR ---
Pt AAOx4 ambulated into ED with walker c/o 02/24 abdominal pain r/t colon resection sx done last month. Denies N/V/D/dysuria. Has been taking Stanton and Diladuid at home with no relief. No other injuries/complaints per pt/noted. Will continue to monitor.
[2018-06-22] MEDS ORDERED: NACL 0.9% 1,000 ML IV ONE (11:42)
--- NOTE | 2018-06-22 11:43 | NUR ---
ER at bedside examining patient.
[2018-06-22] MEDS ORDERED: MORPHINE 4 MG/ML INJ. SYRINGE IVP ONE (11:45)
[2018-06-22] MEDS ORDERED: ONDANSETRON HCL 4 MG/2 ML VIAL IVP ONE (11:45)
[2018-06-22] MEDS ORDERED: [UNRECOGNIZED DRUG - CODE] PO (11:55)
[2018-06-22] MEDS ORDERED: CALC-22 PO (11:55)
[2018-06-22] MEDS ORDERED: PRO40 PO (11:55)
[2018-06-22] MEDS ORDERED: LEVE500T53 PO (11:55)
--- NOTE | 2018-06-22 11:55 | NUR ---
Medication reconciliation completed with information provided by patient. Any prior medication reconciliation on file was reviewed and corrected.
[2018-06-22] MEDS ORDERED: fentaNYL CITRATE/PF 100 MCG/2 ML AMP IVP ONE ×2 (12:00→13:45)
--- NOTE | 2018-06-22 12:09 | NUR ---
Pt taken to radiology via gurney in stable condition
--- NOTE | 2018-06-22 12:19 | NUR ---
Patient returned from Radiology in stable condition. Patient tolerated exam well. Will continue to follow up and monitor.
[2018-06-22 12:25] LABS: BASOPHILS % (AUTO) 0.8 % (0.0-2.0); EOSINOPHILS % (AUTO) 0.8 % (0.0-4.0); HEMATOCRIT 33.5 % (36-54); HEMOGLOBIN 10.8 g/dL (14.0-18.0); LYMPHOCYTES # (AUTO) 1.8 K/uL (1.0-5.5); LYMPHOCYTES % (AUTO) 16.7 % (20.5-51.5); MEAN CORPUSCULAR HEMOGLOBIN 27 pg (27-31); MEAN CORPUSCULAR HGB CONC 32 % (32-36); MEAN CORPUSCULAR VOLUME 83 fL (79.0-98.0); MONOCYTES % (AUTO) 7.4 % (1.7-9.3); NEUTROPHILS # (AUTO) 7.9 K/uL (1.8-7.7); NEUTROPHILS % (AUTO) 74.3 % (40.0-70.0); PLATELET COUNT (AUTO) 324 K/uL (130-430); RED BLOOD CELL COUNT(AUTO) 4.05 MIL/uL (4.2-6.2); RED CELL DISTRIBUTION WIDTH 17.1 % (9.0-15.0); WHITE BLOOD COUNT (AUTO) 10.7 K/uL (4.8-10.8)
[2018-06-22 12:26] LABS: BASOPHILS # (AUTO) 0.1 K/uL (0.0-0.2); EOSINOPHILS # (AUTO) 0.1 K/uL (0.0-0.4); MONOCYTES # (AUTO) 0.8 K/uL (0.0-1.0)
[2018-06-22 12:38] LABS: CALCIUM 9.6 mg/dL (8.4-11.0); CREATININE 0.72 mg/dL (0.55-1.30); POTASSIUM 3.9 mmol/L (3.5-5.1); TOTAL BILIRUBIN 0.4 mg/dL (0.0-1.0)
--- NOTE | 2018-06-22 12:38 | NUR ---
Spoke with patient regarding medications, states he takes norco for treatment of his rheumatoid arthritis, last bowel movement was this morning around 0500, normal per patient, states he takes stool softener to aid in his digestion. Patient states pain is to lower abdomen and radiates toward back. Patient states he just completed home IV antibiotic therapy, and PICC line was just removed. Patient has sutures to anterior abdomen, to be removed tomorrow.
[2018-06-22 12:40] LABS: PROTHROMBIN TIME 10.4 SECS (9.5-12.5)
[2018-06-22 14:08] LABS: BILIRUBIN,URINE NEGATIVE (NEGATIVE); BLOOD, URINE NEGATIVE (NEGATIVE); CLARITY/URINE CLEAR (CLEAR); COLOR,URINE YELLOW (YELLOW); GLUCOSE,URINE NEGATIVE (NEGATIVE); KETONES,URINE TRACE (NEGATIVE); LEUKOCYTE ESTERASE ,URINE NEGATIVE (NEGATIVE); NITRITE, URINE NEGATIVE (NEGATIVE); PH,URINE 5.5 (5.0-8.0); PROTEIN URINE TRACE (NEGATIVE)
[2018-06-22 14:09] LABS: UROBILINOGEN,URINE 0.2 (0.2-1.0)
--- NOTE | 2018-06-22 14:09 | NUR ---
Patient admission orders received from Dr. Tsai, orders entered by RN. Called for room assignment.
--- NOTE | 2018-06-22 14:14 | NUR ---
aPatient will be admitted to care of Dr. Tsai. Admitted to MedSurg unit. Will go to room 111B. Belongings list completed. Summary report printed. Report will be given at bedside.
--- NOTE | 2018-06-22 14:35 | NUR ---
ADMISSION NOTE Received patient from ER via gurney, Patient admitted with diagnosis of Abdominal pain. Patient oriented to hospital routine, call light, toileting and safety-patient verbalized understanding.
[2018-06-22 14:38] LABS: BACTERIA,URINE FEW /HPF (None Seen); MUCUS,URINE 2+ /LPF (None Seen); RBC,URINE 0-3 /HPF (0-3); WBC,URINE 0-3 /HPF (0-3); YEAST,URINE None Seen /HPF (None Seen)
--- NOTE | 2018-06-22 14:42 | NUR ---
OPENING NOTES RECEIVED PT FROM Leo PT IS AAOX4, NO C/O PAIN. NO SOB, NO RESP DISTRESS. SAFETY PRECAUTION STARTED, CALL LIGHT IN REACH, BED IN LOW POSITION. BED LOCKED. ENCOURAGED PT TO CALL FOR ASSIST AND PAIN MED. WILL CONT TO MONITOR.
[2018-06-22 14:43] VITALS: BP_SYST 141
--- NOTE | 2018-06-22 14:47 | NUR ---
CONSULTATION PAGED/CALLED Reason for Consultation: [] ABDOMINAL PAIN Person Who was Notified: [] VICKIE Consulting Physician: [] DR Lea GARCIA Transportation Sales Consultant Specialty: [] GEN SURGEON Ordering Physician: [] DR CARR
[2018-06-22 14:51] VITALS: BP_SYST 144
--- NOTE | 2018-06-22 15:20 | NUR ---
Attending Dr. Quin Lockett was called re: Pain medication. Spoke to Marivel
[2018-06-22] MEDS ORDERED: HYDROmorphone 1 MG INJ. 1 MG/ML AMPUL IVP PRN (15:30)
[2018-06-22] MEDS ORDERED: ACETAMINOPHEN 325 MG TABLET PO PRN (15:30)
[2018-06-22] MEDS ORDERED: ONDANSETRON HCL 4 MG/2 ML VIAL IVP PRN (15:30)
[2018-06-22] MEDS ORDERED: HYDROcodone/ACETAMIN 10-325 MG TAB PO PRN (15:30)
--- NOTE | 2018-06-22 15:41 | NUR ---
PT GIVEN PAIN MEDICATIONS FOR PAIN LEVEL OF 9/10
[2018-06-22 15:56] VITALS: BP_SYST 128
--- NOTE | 2018-06-22 16:51 | NUR ---
ATTENDING MD DR CARR WAS CALLED RE: MORE PAIN MEDICATION. SPOKE TO ALEX
[2018-06-22] MEDS ORDERED: HYDROmorphone 2 MG/ML VIAL IVP ONE (17:00)
--- NOTE | 2018-06-22 18:00 | NUR ---
PT IN BED, APPEARS COMFORTABLE, HAVING DINNER. CALL LIGHT IN REACH.
--- NOTE | 2018-06-22 18:06 | NUR ---
PT NOW AMBULATING IN THE HALLWAY.
[2018-06-22] MEDS: D5LR 1,000 ML IV SCH (19:22)
--- NOTE | 2018-06-22 19:23 | NUR ---
Closing Notes, Pt has been stable, pt ambulating in the hallway with . All needs met. endorsed to night rn Gray.
[2018-06-22 20:00] VITALS: BP_SYST 133
--- NOTE | 2018-06-22 20:00 | NUR ---
Initial Notes / MD Rounds Received patient resting in bed, awake, alert, oriented, family at bedside. Patient denies any acute distress at this time. Vital signs stable. Breathing is even and unlabored. IV site patent/clean/dry. Healing abdominal midline incision noted, tension sutures intact, open to air. Needs addressed. Educated patient regarding use of call light for assistance and fall precautions, patient verbalized understanding. Call light in hand, fall precautions in place. Dr. Tsai on unit, will see patient.
[2018-06-22] MEDS: GABAPENTIN 300 MG CAPSULE PO SCH (20:08)
[2018-06-22] MEDS: levETIRAcetam 500 MG TABLET PO SCH (20:09)
[2018-06-22] MEDS: HYDROmorphone 2 MG/ML VIAL IVP PRN ×2 (20:10→22:59)
[2018-06-22] MEDS ORDERED: DISOPYRAMIDE PHOSPHATE 150 MG CAPSULE PO SCH (21:00)
[2018-06-22] MEDS ORDERED: PIPERACILLIN/TAZOBACTAM 4.5 GM/VIAL (ZOSYN) IV ONE (21:47)
[2018-06-22] MEDS ORDERED: VANCOMYCIN HCL 1000 MG/VIAL IV ONE (21:47)
[2018-06-22] MEDS: LACTOBACILLUS RHAMNOSUS GG 1 CAP CAPSULE PO SCH (21:49)
[2018-06-22] MEDS: PIPERACILLIN/TAZO 4.5GM/DEX-IS 100 ML IV SCH (21:50)
--- NOTE | 2018-06-22 21:56 | NUR ---
Paged Dr. Tsai [phone], s/w Maryam
[2018-06-22] MEDS ORDERED: VANCOMYCIN HCL 1 GM/NS PREMIX 250 ML IV ONE (22:00)
--- NOTE | 2018-06-22 22:00 | NUR ---
Nursing Notes Patient resting in bed, awake, family at bedside. Patient denies any acute distress or pain at this time. Breathing is even and unlabored. IV site patent/clean/dry. Needs addressed. Call light in hand, fall precautions in place. S/W after-hours pharmacist regarding scheduled Vancomycin does @ 2200 and 0600, confirmed that pharmacy dosing was entered correctly. S/W Dr. Tsai regarding pharmacy dosing of Vancomycin. Per Dr. Tsai, do not give scheduled 0600 dose of Vancomycin.
--- NOTE | 2018-06-22 22:28 | NUR ---
Consultation called Reason for consultation: Abscess Was consult called: Y Person who was notified: Katie Consulting Physician: Dr. Byrd Electrical Design Technician Ordering Physician: Dr. Tsai
[2018-06-23] VITALS: BP_SYST 131
--- NOTE | 2018-06-23 | NUR ---
Nursing Notes Patient resting in bed with eyes closed, easily aroused upon nurse entering room. Patient denies any acute distress at this time. Breathing is even and unlabored. IV site patent/clean/dry. Call light in hand, will continue to monitor.
[2018-06-23] MEDS: HYDROmorphone 2 MG/ML VIAL IVP PRN ×9 (01:59→23:56)
--- NOTE | 2018-06-23 02:00 | NUR ---
Nursing Notes Patient resting in bed, awake. Patient denies any acute distress at this time. Medicated patient for pain per MD orders. Needs addressed. IV site patent/clean/dry. Fall precautions in place. Will continue to monitor.
--- NOTE | 2018-06-23 04:00 | NUR ---
Nursing Notes Patient resting in bed with eyes closed. No acute distress noted, breathing is even and unlabored. IV site patent/clean/dry. Call light in hand, fall precautions in place. Will continue to monitor for changes and safety.
[2018-06-23] MEDS: D5LR 1,000 ML IV SCH ×3 (05:05→20:44)
[2018-06-23] MEDS: PIPERACILLIN/TAZO 4.5GM/DEX-IS 100 ML IV SCH ×3 (05:05→21:37)
[2018-06-23] MEDS ORDERED: VANCOMYCIN HCL 1 GM/NS PREMIX 250 ML IV ONE (06:00)
[2018-06-23] MEDS: PANTOPRAZOLE SODIUM 40 MG TAB PO SCH (06:03)
--- NOTE | 2018-06-23 06:36 | NUR ---
Closing Notes Patient resting in bed, awake. Patient denies any acute distress or pain at this time. Breathing is even and unlabored. IV site patent/clean/dry, no S/S infection/infiltration noted. Tension sutures remains intact. Needs addressed throughout shift. Call light in hand, fall precautions in place. Will continue to monitor for changes and safety, and endorse all patient care/needs to oncoming nurse. Patient remains NPO since midnight for procedure today, patient verbalized understanding.
--- NOTE | 2018-06-23 07:36 | NUR ---
OPENING NOTE At initial assessment, patient is awake, alert, and oriented x4, denies any pain/discomfort at this time. Ambulatory noted with steady gait. On room air, breathing even and unlabored. IV site on the LAC 22G patent and intact, D5LR infusing at 120 ml/hr. Safety and fall precautions in place, bed is in lowest position and locked, side rails up x2, call light within reach, will continue to monitor.
[2018-06-23 08:15] VITALS: BP_SYST 128
[2018-06-23] MEDS: VITAMIN B COMPLEX 1 CAP/TAB PO SCH (08:17)
[2018-06-23] MEDS: CALCIUM 600/VIT D PO SCH (08:17)
[2018-06-23] MEDS: FERROUS SULFATE 140 MG TABLET.ER PO SCH (08:18)
[2018-06-23] MEDS: levETIRAcetam 500 MG TABLET PO SCH ×2 (08:18→20:47)
[2018-06-23] MEDS: LACTOBACILLUS RHAMNOSUS GG 1 CAP CAPSULE PO SCH ×2 (08:18→20:47)
[2018-06-23] MEDS: ASPIRIN 81 MG TAB.CHEW PO SCH (08:18)
[2018-06-23] MEDS: MULTIVITAMINS TAB 1 TABLET PO SCH (08:18)
[2018-06-23] MEDS: GABAPENTIN 300 MG CAPSULE PO SCH ×3 (08:18→20:47)
[2018-06-23] MEDS: FOLIC ACID 1 MG TABLET PO SCH (08:18)
[2018-06-23] MEDS ORDERED: DIATR MEGLU/DIATRIZ SOD 30 ML SOLUTION PO ONE (08:26)
--- NOTE | 2018-06-23 09:00 | NUR ---
DR. DIEGO AT BEDSIDE Dr. Diego seen and examined the patient at the bedside. Dr. Diego took 4 sutures out, patient denies any pain/discomfort. Addendum: 06/23/18 at 1328 by Gwen Barlow RN ADDENDUM No active bleeding noted, no swelling, no foul odor noted on the sites.
[2018-06-23] MEDS ORDERED: IOHEXOL 100 ML IV ONE (11:23)
--- NOTE | 2018-06-23 11:25 | NUR ---
PAIN/OFF OF UNIT Patient reports 10/10 sharp abdominal pain, medicated with PRN Dilaudid as ordered. Patient is off of unit, transported to radiology via wheelchair. Patient awake, in stable condition, no s/s of acute distress.
[2018-06-23] MEDS ORDERED: LIDOCAINE 1%, 20 ML MDV 20 ML ONE (12:02)
--- NOTE | 2018-06-23 12:08 | NUR ---
ANXIETY Received phone call from Radiology and per Amanda, patient is reporting of "feeling anxious" and requesting for "anti-anxiety med", will medicate with PRN Xanax PO as ordered.
[2018-06-23 12:13] VITALS: BP_SYST 103
[2018-06-23] MEDS: ALPRAZolam 0.25 MG TABLET PO PRN (12:23)
--- NOTE | 2018-06-23 12:30 | NUR ---
BACK ON UNIT Patient is back in the room, in stable condition, assisted to the bathroom, noted with steady gait. No respiratory distress noted.
[2018-06-23] MEDS: VANCOMYCIN HCL 1,500 MG in NS 250 ML IV SCH (12:44)
[2018-06-23] MEDS: DISOPYRAMIDE 100 MG PO SCH ×3 (12:44→23:54)
--- NOTE | 2018-06-23 14:30 | NUR ---
PAIN Patient reports 10/10 sharp abdominal pain, medicated with PRN Dilaudid IVP as ordered. Safety and fall precautions in place, call light within reach.
[2018-06-23 16:47] VITALS: BP_SYST 110
--- NOTE | 2018-06-23 17:26 | NUR ---
PAIN Patient reports 10/10 sharp abdominal pain, medicated with PRN Dilaudid IVP as ordered. Call light within reach, will continue to monitor.
--- NOTE | 2018-06-23 18:55 | NUR ---
CLOSING NOTE Patient is awake, alert and oriented x4, no s/s of acute distress. Breathing even and unlabored. IV site patent and intact, no s/s of infection/infiltration, IVF infusing as ordered. No further needs at this time. Safety and fall precautions in place, bed low and locked, side rails up x3, call light within reach. All needs met and anticipated, will endorse plan of care.
[2018-06-23] MEDS ORDERED: HYDROmorphone 2 MG/ML VIAL ONE (19:15)
--- NOTE | 2018-06-23 19:50 | NUR ---
OPENING NOTES Pt and endorsement received from day shift nurse. Pt is AAOx4, lying in bed. Amaris at bedside. Pt on IVF of D5LR at 120ml/hr and infusing well on left AC G22. Pt complains of right lower abdominal pain with a scale of 9/10. Pt has dry,clean and intact dressing on incision site on right lower abdomen with drainage attached and hanged lower than abdomen and noted brownish color liquid in the bag. No signs of acute distress or SOB noted. Pt refused bed alarm and was educated on risks and benefits of alarm, pt verbalizes understanding. Call light with pt and bed at lowest level. Will continue to monitor.
[2018-06-23 20:43] VITALS: BP_SYST 131
--- NOTE | 2018-06-23 21:38 | NUR ---
DILAUDED 2MG GIVEN Pt complained of right lower quadrant pain with a scale of 9/10. Encouraged deep breathing exercises and position of comfort. Dilauded 2mg IVP given as ordered. Encouraged to use call light when needed and educated pt on side effects like drowsiness and dizziness. Call light with pt and bed at lowest level. Will continue to monitor.
--- NOTE | 2018-06-23 23:56 | NUR ---
DILAUDED 2MG GIVEN Pt complained of right lower quadrant pain with a scale of 9/10. Encouraged deep breathing exercises and position of comfort. Dilauded 2mg IVP given as ordered. Reeducated pt on side effects like drowsiness and dizziness. Call light with pt and bed at lowest level. Will continue to monitor.
[2018-06-24] VITALS: BP_SYST 112
[2018-06-24] MEDS: VANCOMYCIN HCL 1,500 MG in NS 250 ML IV SCH ×2 (00:09→15:17)
[2018-06-24] MEDS: HYDROmorphone 2 MG/ML VIAL IVP PRN ×11 (02:03→23:14)
--- NOTE | 2018-06-24 02:03 | NUR ---
DILAUDED 2MG GIVEN Pt complained of right lower quadrant pain with a scale of 9/10. Dilauded 2mg IVP given as ordered. Reeducated pt on side effects like drowsiness and dizziness. Encouraged to use call light and educated on safety precautions. Call light with pt and bed at lowest level. Will continue to monitor.
[2018-06-24] MEDS: D5LR 1,000 ML IV SCH ×3 (04:05→23:13)
--- NOTE | 2018-06-24 04:39 | NUR ---
DILAUDED 2MG GIVEN Pt complained of right lower quadrant pain with a scale of 9/10. Encouraged deep breathing exercises and position of comfort. Dilauded 2mg IVP given as ordered. Reeducated on safety precautions. Call light with pt and bed at lowest level. Will continue to monitor.
[2018-06-24] MEDS: PIPERACILLIN/TAZO 4.5GM/DEX-IS 100 ML IV SCH ×3 (06:10→23:13)
[2018-06-24] MEDS: DISOPYRAMIDE 100 MG PO SCH ×4 (06:11→23:13)
[2018-06-24] MEDS: PANTOPRAZOLE SODIUM 40 MG TAB PO SCH (06:11)
--- NOTE | 2018-06-24 06:45 | NUR ---
DILAUDED 2MG GIVEN/CLOSING NOTES Pt complained of right lower quadrant pain with a scale of 9/10. Dilauded 2mg IVP given as ordered. Reeducated on safety precautions. No signs of acute distress or SOB noted. Call light with pt and bed at lowest level. All needs attended throughout the shift. Will endorse to day shift nurse.
--- NOTE | 2018-06-24 07:15 | NUR ---
OPENING NOTE At initial assessment, patient is awake, alert and oriented x4, reports pain but patient is aware about the next Dilaudid dose at 0845. Breathing even and unlabored, on room air. IV site on the LAC 22G patent and intact, D5LR running at 120 ml/hr, no s/s of infection/infiltration. Safety and fall precautions in place, bed low and locked, side rails up x2, call light within reach, will continue to monitor.
--- NOTE | 2018-06-24 07:42 | NUR ---
SPOKE WITH DR. DIEGO Spoke with Dr. Diego and MD asked regarding CT guided drainage and informed about the result. Dr. Diego with new order to advance patient's diet, order to be entered by RN.
[2018-06-24 08:15] VITALS: BP_SYST 116
[2018-06-24] MEDS: GABAPENTIN 300 MG CAPSULE PO SCH ×3 (08:52→20:14)
[2018-06-24] MEDS: MULTIVITAMINS TAB 1 TABLET PO SCH (08:52)
[2018-06-24] MEDS: CALCIUM 600/VIT D PO SCH (08:52)
[2018-06-24] MEDS: LACTOBACILLUS RHAMNOSUS GG 1 CAP CAPSULE PO SCH ×2 (08:52→20:14)
[2018-06-24] MEDS: ASPIRIN 81 MG TAB.CHEW PO SCH (08:52)
[2018-06-24] MEDS: VITAMIN B COMPLEX 1 CAP/TAB PO SCH (08:52)
[2018-06-24] MEDS: FOLIC ACID 1 MG TABLET PO SCH (08:52)
[2018-06-24] MEDS: levETIRAcetam 500 MG TABLET PO SCH ×2 (08:52→20:14)
[2018-06-24] MEDS: FERROUS SULFATE 140 MG TABLET.ER PO SCH (08:53)
--- NOTE | 2018-06-24 09:32 | NUR ---
DR. DIEGO AT BEDSIDE Dr. Diego seen and examined the patient at bedside.
--- NOTE | 2018-06-24 11:04 | NUR ---
PAIN Patient reports 10/10 sharp abdominal pain, medicated with PRN Dilaudid IVP as ordered. Call light within reach, will continue to monitor.
[2018-06-24 11:26] VITALS: BP_SYST 107
--- NOTE | 2018-06-24 13:20 | NUR ---
PAIN Patient reports 10/10 sharp abdominal pain, medicated with PRN Dilaudid IVP as ordered. Call light within reach, will continue to monitor.
[2018-06-24] MEDS ORDERED: DOCUSATE SODIUM 100 MG CAPSULE PO SCH (15:00)
--- NOTE | 2018-06-24 15:00 | NUR ---
Dietitian Recommendations * Recommend regular diet w/ Ensure Enlive BID (ONS yields 700 kcal/day and 40 gm protein/day) LP, RD Please refer to Nutrition Assessment for details.
--- NOTE | 2018-06-24 15:24 | NUR ---
PAIN Patient reports 10/10 sharp abdominal pain, medicated with PRN Dilaudid IVP as ordered. Call light within reach, will continue to monitor.
[2018-06-24 16:27] VITALS: BP_SYST 115
[2018-06-24] MEDS ORDERED: BISACODYL 10 MG/SUPPOSITORY RC PRN (16:30)
[2018-06-24] MEDS ORDERED: BISACODYL 10 MG/SUPPOSITORY RC ONE (16:30)
--- NOTE | 2018-06-24 16:37 | NUR ---
ELEVATED TEMPERATURE Patient is presenting with elevated temperature of 100.2, per LABEL DRIER. Rechecked temperature 100.0, patient is awake, alert and oriented x4, no s/s of distress. Informed patient regarding the Tylenol order but patient refused medication. Per patient, "I don't need it, I don't feel feverish, trust me, it is from the sun." Will recheck temperature, will continue to monitor.
--- NOTE | 2018-06-24 17:32 | NUR ---
PAIN/ELEVATED TEMPERATURE Patient reports 03/26 sharp abdominal pain, medicated with PRN Dilaudid IVP as ordered. Rechecked temperature, still at 100.0, patient stating "it's from the sun. I don't feel feverish, I'm not nauseous, no headache, give it time and recheck it again." Continued to refuse Tylenol order. Addendum: 06/24/18 at 1736 by Gwen Barlow RN ADDENDUM Encouraged patient to report s/s of fever right away and patient verbalized understanding, call light within reach.
--- NOTE | 2018-06-24 18:27 | NUR ---
CLOSING NOTE Patient is awake, alert and oriented x4, in stable condition, temperature rechecked 98.9. Breathing even and unlabored, no respiratory distress noted. IV site patent and intact. IVF infusing as ordered. No further needs at this time. Safety and fall precautions in place, bed low and locked, side rails up x3, call light within reach, at the bedside. All needs met and anticipated, will endorse plan of care.
--- NOTE | 2018-06-24 19:00 | NUR ---
OPENING NOTE Received report from Gwen. Patient resting in bed awake, alert, oriented x4. at the bedside. Breathing unlabored and even on room air. No signs of distress, no needs at this time. Fall and safety precautions in place. Bed in lowest position, brake on, call light within reach. IVF infusing as ordered. Will continue to monitor.
--- NOTE | 2018-06-24 19:29 | NUR ---
PAIN Patient reports 10/10 sharp abdominal pain, medicated with PRN Dilaudid IVP as ordered. Call light within reach, will inform NOC shift nurse. Becka MIJARES.
[2018-06-24 20:00] VITALS: BP_SYST 102
[2018-06-24] MEDS: DOCUSATE SODIUM 100 MG CAPSULE PO SCH (20:14)
[2018-06-24] MEDS ORDERED: DOCUSATE SODIUM 100 MG CAPSULE PO ONE (20:14)
--- NOTE | 2018-06-24 21:19 | NUR ---
Patient c/o pain. Administered PRN Dilaudid IVP as ordered. Educated patient on safety and side effects. Encouraged call for assist.
--- NOTE | 2018-06-24 23:18 | NUR ---
Med pass. IV abx hung. New IVF . Patient c/o pain, administered PRN dilaudid IVP as ordered. Educated patient on side effects and safety. Encourage call for assist.
--- NOTE | 2018-06-25 | NUR ---
Patient is now NPO
[2018-06-25 00:16] VITALS: BP_SYST 115
[2018-06-25] MEDS: HYDROmorphone 2 MG/ML VIAL IVP PRN ×11 (01:28→22:50)
[2018-06-25] MEDS: VANCOMYCIN HCL 1,500 MG in NS 250 ML IV SCH ×2 (01:28→12:07)
--- NOTE | 2018-06-25 01:30 | NUR ---
IV abx hung. Patient c/o pain. Administered PRN dilaudid IVP as ordered.
--- NOTE | 2018-06-25 03:25 | NUR ---
Patient c/o pain. Administered PRN dilaudid IVP as ordered.
[2018-06-25] MEDS: DISOPYRAMIDE 100 MG PO SCH ×3 (05:32→18:23)
[2018-06-25] MEDS: PIPERACILLIN/TAZO 4.5GM/DEX-IS 100 ML IV SCH ×3 (05:32→22:45)
--- NOTE | 2018-06-25 05:41 | NUR ---
IV abx hung. Patient c/o pain. Administered PRN dilaudid IVP as ordered.
--- NOTE | 2018-06-25 06:51 | NUR ---
CLOSING NOTE Patient resting in bed awake, alert, oriented x4. Breathing unlabored and even on room air. No signs of distress, no needs at this time. Fall and safety precautions in place. Bed in lowest position, brake on, call light within reach. IVF infusing as ordered. Patient currently NPO for CT A/P this AM. Will endorse cares to day shift nurse.
[2018-06-25 07:48] VITALS: BP_SYST 97
[2018-06-25 07:56] LABS: BASOPHILS % (AUTO) 0.4 % (0.0-2.0); EOSINOPHILS # (AUTO) 0.1 K/uL (0.0-0.4); EOSINOPHILS % (AUTO) 0.6 % (0.0-4.0); HEMOGLOBIN 8.2 g/dL (14.0-18.0); LYMPHOCYTES % (AUTO) 11.2 % (20.5-51.5); MEAN CORPUSCULAR HEMOGLOBIN 27 pg (27-31); MEAN CORPUSCULAR HGB CONC 32 % (32-36); MEAN CORPUSCULAR VOLUME 84 fL (79.0-98.0); MONOCYTES # (AUTO) 1.2 K/uL (0.0-1.0); MONOCYTES % (AUTO) 13.5 % (1.7-9.3); NEUTROPHILS # (AUTO) 6.5 K/uL (1.8-7.7); NEUTROPHILS % (AUTO) 74.3 % (40.0-70.0); PLATELET COUNT (AUTO) 218 K/uL (130-430); RED BLOOD CELL COUNT(AUTO) 3.09 MIL/uL (4.2-6.2); RED CELL DISTRIBUTION WIDTH 18.1 % (9.0-15.0); WHITE BLOOD COUNT (AUTO) 8.8 K/uL (4.8-10.8)
[2018-06-25 08:00] LABS: POTASSIUM 3.6 mmol/L (3.5-5.1)
--- NOTE | 2018-06-25 08:00 | NUR ---
Note Pt sitting up in bed. Pain medication was given at 0715am for severe pain. No SOB/resp distress or severe pain/discomfort was noted at this time. Left AC IV intact and patent infusing IVF's well. Pt NPO at this time for CT of abdomen/pelvis. Abdominal incisions open to air and incisions are intact, no drainage/bleeding noted at this time. RLQ of abdomen has incision with drain - pt states this is where all the pain is. Drainage bag is empty - no drainage noted at this time. No needs noted. Call light within reach.
[2018-06-25 08:01] LABS: CALCIUM 8.7 mg/dL (8.4-11.0); CREATININE 0.7 mg/dL (0.55-1.30)
[2018-06-25 08:02] LABS: ALBUMIN 2.3 g/dL (3.4-4.8); TOTAL BILIRUBIN 0.4 mg/dL (0.0-1.0)
--- NOTE | 2018-06-25 09:00 | NUR ---
Note Pt was of the floor via wheelchair at 0825am and back to room 0855am. IVF's were reconnected and IVF's infusing well at this time. No needs noted. Call light within reach. Dietary was called for breakfast tray at this time.
[2018-06-25] MEDS: levETIRAcetam 500 MG TABLET PO SCH ×2 (09:24→20:16)
[2018-06-25] MEDS: MULTIVITAMINS TAB 1 TABLET PO SCH ×2 (09:24→20:17)
[2018-06-25] MEDS: GABAPENTIN 300 MG CAPSULE PO SCH ×3 (09:24→20:17)
[2018-06-25] MEDS: ASPIRIN 81 MG TAB.CHEW PO SCH (09:24)
[2018-06-25] MEDS: FERROUS SULFATE 140 MG TABLET.ER PO SCH (09:24)
[2018-06-25] MEDS: CALCIUM 600/VIT D PO SCH (09:24)
[2018-06-25] MEDS: FOLIC ACID 1 MG TABLET PO SCH (09:25)
[2018-06-25] MEDS: LACTOBACILLUS RHAMNOSUS GG 1 CAP CAPSULE PO SCH ×2 (09:25→20:16)
[2018-06-25] MEDS: DOCUSATE SODIUM 100 MG CAPSULE PO SCH ×2 (09:25→15:35)
[2018-06-25] MEDS: VITAMIN B COMPLEX 1 CAP/TAB PO SCH (09:36)
[2018-06-25] MEDS: PANTOPRAZOLE SODIUM 40 MG TAB PO SCH (09:36)
--- NOTE | 2018-06-25 10:50 | NUR ---
Note Pt resting in bed, all am PO medications were given at this time. Pt also received his pain medication IVP at 0925am as requested. Call light within reach. No needs noted.
--- NOTE | 2018-06-25 11:55 | NUR ---
Note Pt ambulating to restroom with IV pole and steady gait. New IV was started by charge master specialist Zeny at this time on right forearm 22g'. Left AC IV was dc'd - infiltrated and tender to touch. No needs noted. Call light within reach.
[2018-06-25] MEDS: D5LR 1,000 ML IV SCH ×2 (12:19→14:03)
[2018-06-25 12:45] VITALS: BP_SYST 104
--- NOTE | 2018-06-25 14:16 | NUR ---
Pain management consult: called office of Dr. Malik and spoke with Cesia consult for abdominal pain management ordered by Dr. Tsai
[2018-06-25 14:21] LABS: TOTAL IRON BIND. CAPACITY 166 ug/dL (250-450)
--- NOTE | 2018-06-25 15:25 | NUR ---
Note Pt resting in bed, sitting up position. No needs noted. IVF's infusing well through right forearm IV site at this time. Call light within reach.
--- NOTE | 2018-06-25 15:38 | NUR ---
Discharge Planning: DCP faxed pt referral to [facility] (f [phone] P [phone]) Awilda stated pt would resume.
[2018-06-25 16:14] VITALS: BP_SYST 95
--- NOTE | 2018-06-25 18:00 | NUR ---
Note Pt resting in bed. Dr Tsai at bedside talking to pt and pt's , answering questions/concerns at this time. No SOB/resp distress noted at this time. Pt's pain maintained with pain medications q2' as scheduled and requested all shift. Pt was checked on q1' and PRN for needs and care. IV in right forearm intact and patent infusing IVF's. RLQ drain has no drainage at this time. No needs noted. Call light within reach.
[2018-06-25] MEDS ORDERED: MINERAL OIL 30 ML UDC PO ONE (18:45)
--- NOTE | 2018-06-25 19:14 | NUR ---
OPENING NOTE Received report from Danielle. Patient resting in bed awake, alert, oriented x4. Breathing unlabored and even on room air. No signs of distress, no needs at this time. Fall and safety precautions in place. Bed in lowest position, brake on, call light within reach. IVF infusing as ordered. Will continue to monitor.
[2018-06-25 20:00] VITALS: BP_SYST 106
[2018-06-25] MEDS: SOD FERRIC GLUC COMPLEX/SUC 125 MG in NS 100 ML IV SCH (20:02)
[2018-06-25] MEDS: DOCUSATE SODIUM 250 MG CAPSULE PO SCH (20:17)
[2018-06-25] MEDS: metroNIDAZOLE 500 mg/NS 100 ML IV SCH (21:29)
--- NOTE | 2018-06-25 22:50 | NUR ---
Pt c/o pain. Administered PRN dilaudid IVP as ordered.
[2018-06-26] VITALS: BP_SYST 116
--- NOTE | 2018-06-26 00:19 | NUR ---
Patient resting in bed awake, alert, oriented x4. Breathing unlabored and even on room air. No signs of distress, no needs at this time. Fall and safety precautions in place. Bed in lowest position, brake on, call light within reach. Will continue to monitor.
[2018-06-26] MEDS: VANCOMYCIN HCL 1,500 MG in NS 250 ML IV SCH ×2 (00:59→12:17)
[2018-06-26] MEDS: HYDROmorphone 2 MG/ML VIAL IVP PRN ×11 (00:59→22:14)
[2018-06-26] MEDS: DISOPYRAMIDE 100 MG PO SCH ×5 (01:00→23:04)
--- NOTE | 2018-06-26 01:06 | NUR ---
IV abx hung. Med pass. Patient c/o pain. Administered PRN dialudid IVP as ordered.
--- NOTE | 2018-06-26 03:10 | NUR ---
Pt c/o pain. Administered PRN dilaudid IVP as ordered. New IV access placed. Right forearm #20.
[2018-06-26] MEDS: metroNIDAZOLE 500 mg/NS 100 ML IV SCH ×3 (05:20→21:58)
--- NOTE | 2018-06-26 05:26 | NUR ---
Med pass. IV abx hung. Patient c/o pain. Administered PRN dilaudid IVP as ordered.
[2018-06-26] MEDS: PIPERACILLIN/TAZO 4.5GM/DEX-IS 100 ML IV SCH ×3 (06:38→23:00)
--- NOTE | 2018-06-26 06:40 | NUR ---
IV abx hung
--- NOTE | 2018-06-26 06:45 | NUR ---
CLOSING NOTE Patient resting in bed awake, alert, oriented x4. Breathing unlabored and even on room air. No signs of distress, no needs at this time. Fall and safety precautions in place. Bed in lowest position, brake on, call light within reach. IV abx infusing as ordered. Will endorse cares to day shift nurse.
--- NOTE | 2018-06-26 07:10 | NUR ---
closing note patient is resting in bed present, complaining of abdominal pain and lower back pain, patient says he will wait for next available medication, drainage bag emptied, no other needs at this time, report given to [facility] shift nurse, bed in the lowest position, bed alarm off per patient request educated on the benefits of it but patient refused, call light within reach, two side rails up, IV line clean and intact. Addendum: 06/26/18 at 1918 by Gavi Lopez RN IGNORE CLOSING NOTE [id number]
[2018-06-26 07:20] LABS: HEMATOCRIT 25.7 % (36-54); HEMOGLOBIN 8.1 g/dL (14.0-18.0); MEAN CORPUSCULAR HEMOGLOBIN 26 pg (27-31); MEAN CORPUSCULAR HGB CONC 31 % (32-36); MEAN CORPUSCULAR VOLUME 84 fL (79.0-98.0); PLATELET COUNT (AUTO) 248 K/uL (130-430); RED BLOOD CELL COUNT(AUTO) 3.06 MIL/uL (4.2-6.2); RED CELL DISTRIBUTION WIDTH 18.3 % (9.0-15.0); WHITE BLOOD COUNT (AUTO) 7.6 K/uL (4.8-10.8)
--- NOTE | 2018-06-26 07:20 | NUR ---
OPENING NOTE patient is resting in bed, complaining of abdominal pain. A&Ox4, assessment completed, educated on way for managing pain and call light system, and plan of care, patient verbalized understanding, bed in the lowest position, bed alarm off per patient request educated on the benefits of it but patient refused, call light within reach, two side rails up, IV line clean and intact, drainage bag intact.
--- NOTE | 2018-06-26 07:25 | NUR ---
PAIN medication patient is resting in bed, complaining of abdominal pain, educated on medication use and side effects, patient verbalized understanding and tolerated well, bed in the lowest position, bed alarm off per patient request educated on the benefits of it but patient refused, call light within reach, two side rails up, IV line clean and intact.
[2018-06-26 08:07] LABS: CALCIUM 9.2 mg/dL (8.4-11.0); CREATININE 0.71 mg/dL (0.55-1.30); POTASSIUM 3.8 mmol/L (3.5-5.1)
[2018-06-26 08:24] VITALS: BP_SYST 113
[2018-06-26] MEDS: MINERAL OIL 30 ML UDC PO SCH (08:29)
[2018-06-26] MEDS: GABAPENTIN 300 MG CAPSULE PO SCH ×3 (08:30→20:15)
[2018-06-26] MEDS: levETIRAcetam 500 MG TABLET PO SCH ×2 (08:30→20:15)
[2018-06-26] MEDS: VITAMIN B COMPLEX 1 CAP/TAB PO SCH (08:30)
[2018-06-26] MEDS: CALCIUM 600/VIT D PO SCH (08:30)
[2018-06-26] MEDS: MULTIVITAMINS TAB 1 TABLET PO SCH ×2 (08:30→20:15)
[2018-06-26] MEDS: ASPIRIN 81 MG TAB.CHEW PO SCH (08:30)
[2018-06-26] MEDS: FOLIC ACID 1 MG TABLET PO SCH (08:30)
[2018-06-26] MEDS: LACTOBACILLUS RHAMNOSUS GG 1 CAP CAPSULE PO SCH ×2 (08:30→20:15)
[2018-06-26] MEDS: PANTOPRAZOLE SODIUM 40 MG TAB PO SCH (08:30)
[2018-06-26] MEDS: DOCUSATE SODIUM 250 MG CAPSULE PO SCH ×3 (08:30→20:15)
--- NOTE | 2018-06-26 08:30 | NUR ---
medications patient is resting in bed eating his breakfast, complaining of abdominal pain but will wait for next available medication, educated on medication use and side effects, patient verbalized understanding and tolerated well, bed in the lowest position, bed alarm off per patient request educated on the benefits of it but patient refused, call light within reach, two side rails up, IV line clean and intact. Addendum: 06/26/18 at 1733 by Gavi Lopez RN Home medication was not scanning, did a manual barcode entry, Addendum: 06/26/18 at 1814 by Gavi Lopez RN [employer] patient was educated on the benefits of it, patient refused because he had a bowel movement around 0100, said will take half of the dose at night, will endorse to [facility] shift nurse.
[2018-06-26] MEDS: FERROUS SULFATE 140 MG TABLET.ER PO SCH (08:34)
[2018-06-26 08:56] LABS: BASOPHILS % (MANUAL) 0 % (0-2); EOSINOPHILS % (MANUAL) 0 % (0-7); LYMPHOCYTES % (MANUAL) 15 % (20-46); MONOCYTES % (MANUAL) 9 % (0-11)
--- NOTE | 2018-06-26 10:58 | NUR ---
Dr Flowers rounds in room with patient
[2018-06-26 11:07] LABS: FOLATE (FOLIC ACID) >20.0 ng/mL (>3.0)
--- NOTE | 2018-06-26 12:14 | NUR ---
Dc Planning: Met with dr. Flowers and dr. Tsai for new dcp to send pt. to tertiary hp: [facility] for possible duodenal leaking that might be the cause of fluid accumulation / abscess and abd pain. CM confirmed with pt. for his transfer request to [facility] or to [facility]. The pt. will call his PCP/Dr Mcgee to assist the transfer to [facility].
--- NOTE | 2018-06-26 12:17 | NUR ---
Vancomycin patient is resting in bed eating his lunch, complaining of abdominal pain but said he will wait for next available pain medication, educated on medication use and side effects, patient verbalized understanding and tolerated well, bed in the lowest position, bed alarm off per patient request educated on the benefits of it but patient refused, call light within reach, two side rails up, IV line clean and intact.
[2018-06-26 12:22] VITALS: BP_SYST 103
--- NOTE | 2018-06-26 13:39 | NUR ---
DC Planning: Tertiary transfer: >> CM faxed the referral inquiry to John at [facility] transfer ctr and is waiting for the acceptance decision.
--- NOTE | 2018-06-26 13:40 | NUR ---
Discharge Planning: DCP called to put [facility] (f [phone] P [phone]) on hold. DCP spoke to Awilda pt may go to higher level of care. DCP to follow up
--- NOTE | 2018-06-26 14:45 | NUR ---
Medications patient is resting in bed, complaining of abdominal pain but states he will wait until next pain medication, educated on medication use and side effects, patient verbalized understanding and tolerated well, Flagyl given late d/t patient having another antibiotic due prior to Flagyl, called pharmacy in regards to bringing Zosyn because it is not in the medication room, bed in the lowest position, bed alarm off per patient request educated on the benefits of it but patient refused, call light within reach, two side rails up, IV line clean and intact.
--- NOTE | 2018-06-26 15:53 | NUR ---
PAIN medication AND Zosyn patient is resting in bed, complaining of abdominal pain, educated on medication use and side effects, patient verbalized understanding and tolerated well, Zosyn was given late because there were two other IV antibiotics scheduled, bed in the lowest position, bed alarm off per patient request educated on the benefits of it but patient refused, call light within reach, two side rails up, IV line clean and intact.
[2018-06-26 16:46] VITALS: BP_SYST 99
--- NOTE | 2018-06-26 17:05 | NUR ---
Dr Tsai rounds in patient's room
[2018-06-26] MEDS: SOD FERRIC GLUC COMPLEX/SUC 125 MG in NS 100 ML IV SCH (17:15)
--- NOTE | 2018-06-26 17:16 | NUR ---
Medications patient is resting in sitting in chair, complaining of abdominal pain but will wait until available pain medication, educated on medication use and side effects, patient verbalized understanding and tolerated well, patient sitting in chair, call light within reach, IV line clean and intact. Addendum: 06/26/18 at 1733 by Gavi Lopez RN Home medication was not scanning, did a manual barcode entry, walked to pharmacy to tell them, new label was put on
--- NOTE | 2018-06-26 17:50 | NUR ---
Dr Lionel beck in regards to results of aerobic and anaerobic cultures Addendum: 06/26/18 at 1918 by Gavi Lopez RN Dr Flowers called back, no new orders
--- NOTE | 2018-06-26 17:55 | NUR ---
PAIN medication patient is resting in bed, complaining of abdominal pain and lower back pain, educated on medication use and side effects, patient verbalized understanding and tolerated well, bed in the lowest position, bed alarm off per patient request educated on the benefits of it but patient refused, call light within reach, two side rails up, IV line clean and intact.
--- NOTE | 2018-06-26 19:10 | NUR ---
closing note patient is resting in bed present, complaining of abdominal pain and lower back pain, patient says he will wait for next available medication, drainage bag emptied, no other needs at this time, report given to [facility] shift nurse, bed in the lowest position, bed alarm off per patient request educated on the benefits of it but patient refused, call light within reach, two side rails up, IV line clean and intact.
--- NOTE | 2018-06-26 19:15 | NUR ---
OPENING NOTE Received report from Gavi. Patient resting in bed awake, alert, oriented x4. Breathing unlabored and even on room air. No signs of distress, no needs at this time. Fall and safety precautions in place. Bed in lowest position, brake on, call light within reach. at the bedside. Will continue to monitor.
[2018-06-26 20:00] VITALS: BP_SYST 104
--- NOTE | 2018-06-26 20:17 | NUR ---
Med pass. Patient c/o pain. Administered PRN dialudid IVP as ordered.
--- NOTE | 2018-06-26 22:03 | NUR ---
IV abx hung
--- NOTE | 2018-06-26 22:16 | NUR ---
Patient c/o pain. Administered PRN dilaudid IVP as ordered.
--- NOTE | 2018-06-26 23:02 | NUR ---
ARMAAN hagan. Med pass
[2018-06-27] VITALS: BP_SYST 112
[2018-06-27] MEDS: HYDROmorphone 2 MG/ML VIAL IVP PRN ×12 (00:23→23:58)
[2018-06-27] MEDS: VANCOMYCIN HCL 1,500 MG in NS 250 ML IV SCH ×2 (00:26→12:02)
--- NOTE | 2018-06-27 00:29 | NUR ---
IV abx danya. Patient c/o pain. Administered PRN dilaudid IVP as ordered
--- NOTE | 2018-06-27 02:40 | NUR ---
Patient c/o pain. Administered PRN dilaudid IVP as ordered
--- NOTE | 2018-06-27 03:01 | NUR ---
Feliz from [facility] called for update on patient. He said we are waiting on the doctors from [facility] and [facility] to talk to each other about patient, then bed may be available. Will have day shift nurse follow up with case management in the AM.
--- NOTE | 2018-06-27 04:38 | NUR ---
Patient c/o pain. Administered PRN dilaudid IVP as ordered.
[2018-06-27] MEDS: metroNIDAZOLE 500 mg/NS 100 ML IV SCH ×3 (05:35→23:57)
--- NOTE | 2018-06-27 05:38 | NUR ---
IV abx hung
[2018-06-27] MEDS: PANTOPRAZOLE SODIUM 40 MG TAB PO SCH (06:31)
[2018-06-27] MEDS: PIPERACILLIN/TAZO 4.5GM/DEX-IS 100 ML IV SCH ×2 (06:32→14:37)
--- NOTE | 2018-06-27 06:50 | NUR ---
New IV site started. Left forearm #20, flushed and patent. Saline locked. Other IV site d/c, catheter tip intact.
--- NOTE | 2018-06-27 07:00 | NUR ---
Patient c/o pain. Administered PRN dialudid IVP as ordered. IV abx danya.
--- NOTE | 2018-06-27 07:30 | NUR ---
OPENING NOTE patient is resting in bed, present in room, complaining of abdominal pain, patient states that he will wait for next available pain medication, A&Ox4, assessment completed, educated on way for managing pain and call light system, and plan of care, patient verbalized understanding, bed in the lowest position, bed alarm off per patient request educated on the benefits of it but patient refused, call light within reach, two side rails up, IV line clean and intact, drainage bag intact.
--- NOTE | 2018-06-27 07:38 | NUR ---
CLOSING NOTE Gave report to Gavi. Patient resting in bed awake, alert, oriented x4. Breathing unlabored and even on room air. No signs of distress, no needs at this time. Fall and safety precautions in place. Bed in lowest position, brake on, call light within reach. at the bedside. Will endorse cares to day shift nurse.
--- NOTE | 2018-06-27 07:54 | NUR ---
Feliz from [facility] spoke to Feliz, updated me that the GI doctor they want patient to see doesn't do procedures over the weekend and if they still want him to be transferred there, it cannot be until Saturday. Feliz said he will speak to Case Management but I will also update her on my side.
[2018-06-27 08:44] VITALS: BP_SYST 115
[2018-06-27] MEDS: MULTIVITAMINS TAB 1 TABLET PO SCH ×2 (08:46→23:58)
[2018-06-27] MEDS: LACTOBACILLUS RHAMNOSUS GG 1 CAP CAPSULE PO SCH ×2 (08:46→21:45)
[2018-06-27] MEDS: GABAPENTIN 300 MG CAPSULE PO SCH ×3 (08:46→21:45)
[2018-06-27] MEDS: levETIRAcetam 500 MG TABLET PO SCH ×2 (08:46→21:46)
[2018-06-27] MEDS: VITAMIN B COMPLEX 1 CAP/TAB PO SCH (08:46)
[2018-06-27] MEDS: FOLIC ACID 1 MG TABLET PO SCH (08:46)
[2018-06-27] MEDS: ASPIRIN 81 MG TAB.CHEW PO SCH (08:46)
[2018-06-27] MEDS: CALCIUM 600/VIT D PO SCH (08:46)
[2018-06-27] MEDS: DOCUSATE SODIUM 250 MG CAPSULE PO SCH ×3 (08:46→21:45)
[2018-06-27] MEDS: FERROUS SULFATE 140 MG TABLET.ER PO SCH (08:47)
--- NOTE | 2018-06-27 08:47 | NUR ---
Medications patient is resting in bed, complaining of abdominal pain, pain medication was given, educated on medication use and side effects, patient verbalized understanding and tolerated well, home medication was given late because it was not available until now the brought it in, bed in the lowest position, bed alarm off per patient request educated on the benefits of it but patient refused, call light within reach, two side rails up, IV line clean and intact. Addendum: 06/27/18 at 1152 by Gavi Lopez RN Medication patient refused mineral oil, educated was provided for benefits and side effects, but patient still refused, home medication was done with manual barcode
[2018-06-27] MEDS: DISOPYRAMIDE 100 MG PO SCH ×3 (08:48→17:37)
[2018-06-27] MEDS: MINERAL OIL 30 ML UDC PO SCH (08:49)
--- NOTE | 2018-06-27 11:00 | NUR ---
PAIN medication and home medication patient is resting in bed, complaining of right lower abdominal pain, educated on medication use and side effects, patient verbalized understanding and tolerated well, bed in the lowest position, bed alarm off per patient request educated on the benefits of it but patient refused, call light within reach, two side rails up, IV line clean and intact. manual barcode was done for home medication
[2018-06-27 11:17] LABS: BASOPHILS % (AUTO) 0.4 % (0.0-2.0); EOSINOPHILS # (AUTO) 0.1 K/uL (0.0-0.4); EOSINOPHILS % (AUTO) 1.7 % (0.0-4.0); HEMATOCRIT 29.7 % (36-54); HEMOGLOBIN 9.4 g/dL (14.0-18.0); MEAN CORPUSCULAR HEMOGLOBIN 26 pg (27-31); MEAN CORPUSCULAR HGB CONC 32 % (32-36); MEAN CORPUSCULAR VOLUME 83 fL (79.0-98.0); MONOCYTES # (AUTO) 0.9 K/uL (0.0-1.0); NEUTROPHILS % (AUTO) 74.9 % (40.0-70.0); PLATELET COUNT (AUTO) 354 K/uL (130-430); RED BLOOD CELL COUNT(AUTO) 3.57 MIL/uL (4.2-6.2)
[2018-06-27 11:18] LABS: CALCIUM 9.7 mg/dL (8.4-11.0); CREATININE 0.74 mg/dL (0.55-1.30); POTASSIUM 3.8 mmol/L (3.5-5.1)
[2018-06-27 11:19] VITALS: BP_SYST 105
--- NOTE | 2018-06-27 12:02 | NUR ---
Vancomycin patient is resting in bed, complaining of abdominal pain but said he will wait for next available pain medication, educated on medication use and side effects, patient verbalized understanding and tolerated well, bed in the lowest position, bed alarm off per patient request educated on the benefits of it but patient refused, call light within reach, two side rails up, IV line clean and intact.
--- NOTE | 2018-06-27 12:08 | NUR ---
DC Planning: F/U with [facility]: per John, the pt is accepted. The pt. is expecting to transfer on Saturday06/28/17. for GI procedure on Saturday. CM is to fax the Repatriation Form to John today >> Tasneem, CM to f/u with bed assignment and complete the transfer. Addendum: 06/28/18 at 1641 by Adarsh Matamoros RN [facility] transfer [facility]# [phone].
--- NOTE | 2018-06-27 14:37 | NUR ---
Hugo patient is resting in bed, educated on medication use and side effects, patient verbalized understanding and tolerated well, antibiotics given later because other antibiotic was scheduled prior to this one, bed in the lowest position, bed alarm off per patient request educated on the benefits of it but patient refused, call light within reach, two side rails up, IV line clean and intact.
--- NOTE | 2018-06-27 15:29 | NUR ---
PAIN medication patient is resting in bed, complaining of right lower abdominal pain, educated on medication use and side effects, patient verbalized understanding and tolerated well, bed in the lowest position, bed alarm off per patient request educated on the benefits of it but patient refused, call light within reach, two side rails up, IV line clean and intact.
[2018-06-27 15:37] VITALS: BP_SYST 103
--- NOTE | 2018-06-27 15:55 | NUR ---
Peter patient is resting in bed, educated on medication use and side effects, patient verbalized understanding and tolerated well, antibiotics given late because two other antibiotics were scheduled prior to this one, bed in the lowest position, bed alarm off per patient request educated on the benefits of it but patient refused, call light within reach, two side rails up, IV line clean and intact.
[2018-06-27] MEDS: FLUCONAZOLE 400 mg/ NS 200 ML IV SCH (17:36)
--- NOTE | 2018-06-27 17:36 | NUR ---
PAIN medication AND dIFLUCAN patient is resting in bed, complaining of right lower abdominal pain, educated on medication use and side effects, patient verbalized understanding and tolerated well, bed in the lowest position, bed alarm off per patient request educated on the benefits of it but patient refused, call light within reach, two side rails up, IV line clean and intact.
--- NOTE | 2018-06-27 19:40 | NUR ---
ROUNDS PATIENT IN BED, WATCHING TV, NOT IN DISTRESS, VITALS STABLE, NO MORE PAIN AT THIS TIME. ASSESSMENT DONE AND DOCUMENTED. SEE FLOWSHEET. NEEDS ATTENDED TO. FAMILY AT THE BEDSIDE. SAFETY AND FALL PRECAUTION MEASURES IN PLACED. BED IN LOW AND LOCKED POSITION. CALL LIGHT PLACED WITHIN REACH.+
--- NOTE | 2018-06-27 19:44 | NUR ---
closing note patient is resting in bed present, drainage bag emptied, no other needs at this time, report given to noc shift nurse informed of Ferrlicit not given because MD ordered another IV medication before it, bed in the lowest position, bed alarm off per patient request educated on the benefits of it but patient refused, call light within reach, two side rails up, IV line clean and intact.
[2018-06-27 20:00] VITALS: BP_SYST 108
[2018-06-27] MEDS ORDERED: VANCOMYCIN HCL 1,500 MG in NS 250 ML IV SCH (21:00)
--- NOTE | 2018-06-27 21:45 | NUR ---
MEDICATION DUE MEDICATIONS GIVEN ORDERED, TOLERATED WELL. WILL CONTINUE TO MONITOR.
[2018-06-27] MEDS: SOD FERRIC GLUC COMPLEX/SUC 125 MG in NS 100 ML IV SCH (22:11)
[2018-06-28] MEDS: DISOPYRAMIDE 100 MG PO SCH ×5 (00:01→23:49)
--- NOTE | 2018-06-28 00:04 | NUR ---
PATIENT RESTING: Patient resting quietly. No acute distress noted. Vital signs within normal range.
[2018-06-28] MEDS: PIPERACILLIN/TAZO 4.5GM/DEX-IS 100 ML IV SCH ×4 (00:53→22:52)
[2018-06-28] MEDS: HYDROmorphone 2 MG/ML VIAL IVP PRN ×11 (02:03→23:50)
--- NOTE | 2018-06-28 02:03 | NUR ---
PAIN PATIENT C/O ABDOMINAL PAIN, 8/10 PAIN SCALE, DILAUDID 2 MG IV GIVEN ORDERED PRN FOR PAIN. WILL CONTINUE TO MONITOR.
[2018-06-28 02:18] VITALS: BP_SYST 93
--- NOTE | 2018-06-28 04:10 | NUR ---
PATIENT RESTING: Patient resting quietly. No acute distress noted. Vital signs within normal range.
[2018-06-28] MEDS: metroNIDAZOLE 500 mg/NS 100 ML IV SCH ×3 (05:10→21:46)
[2018-06-28] MEDS: PANTOPRAZOLE SODIUM 40 MG TAB PO SCH (06:05)
--- NOTE | 2018-06-28 06:53 | NUR ---
CLOSING NOTES PATIENT ASLEEP, VITALS STABLE, NO SIGNS OF ANY PAIN AND DISCOMFORT AT THIS TIME. ALL NEEDS ATTENDED TO. SAFETY MEASURES MAINTAINED. CALL LIGHT PLACED WITHIN REACH.
[2018-06-28 07:30] VITALS: BP_SYST 104
--- NOTE | 2018-06-28 08:00 | NUR ---
AM NOTES Patient laying in bed resting. No s/s of distress or SOB. IV site patent, intact, dressing is dry. Patient oriented to room routine, bed in lowest position, call light within reach.
[2018-06-28] MEDS: CALCIUM 600/VIT D PO SCH (08:13)
[2018-06-28] MEDS: FOLIC ACID 1 MG TABLET PO SCH (08:13)
[2018-06-28] MEDS: levETIRAcetam 500 MG TABLET PO SCH ×2 (08:14→21:48)
[2018-06-28] MEDS: VITAMIN B COMPLEX 1 CAP/TAB PO SCH (08:14)
[2018-06-28] MEDS: MULTIVITAMINS TAB 1 TABLET PO SCH (08:14)
[2018-06-28] MEDS: LACTOBACILLUS RHAMNOSUS GG 1 CAP CAPSULE PO SCH ×2 (08:14→21:48)
[2018-06-28] MEDS: ASPIRIN 81 MG TAB.CHEW PO SCH (08:14)
[2018-06-28] MEDS: GABAPENTIN 300 MG CAPSULE PO SCH ×3 (08:15→21:48)
[2018-06-28] MEDS: DOCUSATE SODIUM 250 MG CAPSULE PO SCH ×3 (08:15→21:48)
[2018-06-28] MEDS: MINERAL OIL 30 ML UDC PO SCH (08:17)
[2018-06-28] MEDS: FERROUS SULFATE 140 MG TABLET.ER PO SCH (08:18)
[2018-06-28 11:18] VITALS: BP_SYST 109
--- NOTE | 2018-06-28 12:00 | NUR ---
ROUNDS Patient laying in bed resting. No s/s of distress or SOB. All needs being met. Bed in lowest position, call light within reach.
--- NOTE | 2018-06-28 14:30 | NUR ---
MD VISIT Dr. Tsai at bedside to see patient. MD aware of thrombophlebitis on right arm.
--- NOTE | 2018-06-28 14:33 | NUR ---
[place] [facility] [place], [place]: Confirmed by Bruna[place], she will give bed assignment tomorrow. There is no additional GI prep instruction at this time. FERMIN faxed the signed Repatriation form attn : Bruna fax# [phone], tel [phone]. Addendum: 06/28/18 at 1641 by Adarsh Matamoros RN [facility] transfer ctr # [phone].
[2018-06-28] MEDS ORDERED: ENOXAPARIN SODIUM 40 MG/0.4 ML SYRINGE SUBCUT ONE (14:45)
--- NOTE | 2018-06-28 15:40 | NUR ---
MD VISIT Dr. Flowers at bedside to see patient. MD explained the purpose of continuation of atbx treatment with patient and , patient verbalized understanding.
--- NOTE | 2018-06-28 16:37 | NUR ---
DC Planning: Met with pt.and spouse/Amaris at bedside: pt. concerns about transportation to [facility] , stated he is claustrophobic and requested his spouse to transport him instead of going by ambulance. Dr. Tsai made aware and will write the ok to transfer via private care. -- Bruna/[facility] made aware and CM requested [facility] inpatient bed. [facility] transfer ctr # [phone].
[2018-06-28 17:07] VITALS: BP_SYST 115
[2018-06-28] MEDS: FLUCONAZOLE 400 mg/ NS 200 ML IV SCH (17:30)
--- NOTE | 2018-06-28 19:10 | NUR ---
OPENING NOTE Late entry due to patient care. Bedside report received from dayshift nurse. Patient received AOx4, walking around in his room, present at bedside, patient states that pain is tolerable at this time, no s/s of acute distress. Breathing is even and unlabored. IVF infusing well, IV site shows no signs of infiltration or infection. SCDs are off per patient's refusal despite being educated on its purpose and benefits. Call light with patient, instructed to call for assistance if needed, patient verbalized understanding. Bed alarm is off per patient's refusal. Bed is locked and at lowest position. Will continue to monitor.
[2018-06-28 20:00] VITALS: BP_SYST 101
--- NOTE | 2018-06-28 21:00 | NUR ---
ROUNDS Patient in bed, watching TV, no s/s of acute distress noted. Breathing even and unlabored. No active bleeding noted, skin warm and dry to touch. Call light with patient. Will continue to monitor.
[2018-06-28] MEDS: MULTIVITS,CA,MINERALS/IRON/FA 1 TABLET PO SCH (21:48)
--- NOTE | 2018-06-28 21:48 | NUR ---
PAIN Patient complained of 8/10 abdominal pain at this time. PRN medication to be administered. Call light with patient. Will continue to monitor and reassess.
--- NOTE | 2018-06-28 23:50 | NUR ---
ROUNDS/PAIN Patient in bed watching TV. Patient complains of 8/10 abdominal pain. Dilaudid to be administered per PRN order. Breathing even and unlabored. Call light with patient. Will continue to monitor and reassess.
[2018-06-29] VITALS (7 sets, daily range): BP systolic 110–121
--- NOTE | 2018-06-29 00:33 | NUR ---
PT TRANSFERRED Report given to EMT Iris at bedside. Transfer packet with Transfer Orders and Medication Reconciliation form given to EMT with report. Exitcare provided. [facility] ID band removed, replaced with ID band with pt's name and . IV catheter removed, intact and dressing applied, no active bleeding. All belongings sent with patient. Patient left floor via gurney escorted by EMT and Amaris in no distress. Addendum: 06/30/18 at 0504 by Diana Recinos RN Wrong date. It should be 06/30/18.
--- NOTE | 2018-06-29 01:50 | NUR ---
PAIN/ROUNDS Patient complained of 8/10 abdominal pain. Dilaudid to be administered per PRN order. Chest rise and fall even bilaterally. All needs met at this time. Call light with patient. Will continue to monitor and reassess.
[2018-06-29] MEDS: HYDROmorphone 2 MG/ML VIAL IVP PRN ×11 (01:53→23:21)
--- NOTE | 2018-06-29 03:50 | NUR ---
ROUNDS/PAIN Patient in bed, resting, complaining of 8/10 abdominal pain. Dilaudid to be administered per PRN medication. No SOB, breathing even and unlabored. Call light with patient. Will continue to monitor.
[2018-06-29] MEDS: PIPERACILLIN/TAZO 4.5GM/DEX-IS 100 ML IV SCH ×2 (05:02→13:57)
--- NOTE | 2018-06-29 05:25 | NUR ---
ROUNDS Patient in bed resting, eyes closed, appears to be asleep. No signs of discomfort noted. Chest rise and fall even bilaterally. IV antibiotics infusing well. Call light with patient. Will continue to monitor.
[2018-06-29] MEDS: metroNIDAZOLE 500 mg/NS 100 ML IV SCH ×3 (06:03→22:24)
[2018-06-29] MEDS: PANTOPRAZOLE SODIUM 40 MG TAB PO SCH (06:03)
[2018-06-29] MEDS: ALPRAZolam 0.25 MG TABLET PO PRN ×2 (06:04→10:11)
[2018-06-29] MEDS: DISOPYRAMIDE 100 MG PO SCH ×3 (06:05→18:23)
[2018-06-29 06:55] LABS: CALCIUM 8.9 mg/dL (8.4-11.0); CREATININE 0.73 mg/dL (0.55-1.30); POTASSIUM 3.8 mmol/L (3.5-5.1)
--- NOTE | 2018-06-29 06:57 | NUR ---
CLOSING NOTE Patient in bed resting, no s/s of acute distress noted. Breathing even and unlabored. IV antibiotic infusing well, IV site shows no signs of infection or infiltration. No active bleeding noted. Drain at right lower abdomen attached, secured, and draining by gravity. All needs met throughout shift. Fall and safety precautions maintained throughout shift. Will continue to monitor until patient care is endorsed to oncoming day shift nurse.
[2018-06-29 07:04] LABS: ALBUMIN 2.3 g/dL (3.4-4.8); TOTAL BILIRUBIN 0.2 mg/dL (0.0-1.0)
[2018-06-29 07:29] LABS: EOSINOPHILS # (AUTO) 0.2 K/uL (0.0-0.4); HEMOGLOBIN 8.3 g/dL (14.0-18.0); LYMPHOCYTES # (AUTO) 1.5 K/uL (1.0-5.5); MEAN CORPUSCULAR HEMOGLOBIN 27 pg (27-31); MEAN CORPUSCULAR HGB CONC 32 % (32-36); MEAN CORPUSCULAR VOLUME 84 fL (79.0-98.0)
[2018-06-29 07:35] LABS: BASOPHILS % (AUTO) 0.8 % (0.0-2.0); EOSINOPHILS % (AUTO) 2.3 % (0.0-4.0); HEMATOCRIT 26.3 % (36-54); MONOCYTES % (AUTO) 14.6 % (1.7-9.3); NEUTROPHILS # (AUTO) 4.2 K/uL (1.8-7.7); NEUTROPHILS % (AUTO) 61.3 % (40.0-70.0); RED BLOOD CELL COUNT(AUTO) 3.11 MIL/uL (4.2-6.2); RED CELL DISTRIBUTION WIDTH 19.2 % (9.0-15.0)
[2018-06-29 07:36] LABS: BASOPHILS # (AUTO) 0.1 K/uL (0.0-0.2)
--- NOTE | 2018-06-29 07:38 | NUR ---
AM NOTES Patient laying in bed resting. No s/s of distress or SOB. IV site patent, intact, dressing is dry. RLQ drain patent, intact, bag attached, no drainage noted at this time. Patient oriented to room routine, bed in lowest position, call light within reach.
[2018-06-29] MEDS: FERROUS SULFATE 140 MG TABLET.ER PO SCH (08:07)
[2018-06-29] MEDS: VITAMIN B COMPLEX 1 CAP/TAB PO SCH (08:08)
[2018-06-29] MEDS: MULTIVITS,CA,MINERALS/IRON/FA 1 TABLET PO SCH ×2 (08:08→20:40)
[2018-06-29] MEDS: GABAPENTIN 300 MG CAPSULE PO SCH ×3 (08:08→20:41)
[2018-06-29] MEDS: DOCUSATE SODIUM 250 MG CAPSULE PO SCH ×3 (08:08→20:41)
[2018-06-29] MEDS: ASPIRIN 81 MG TAB.CHEW PO SCH (08:08)
[2018-06-29] MEDS: LACTOBACILLUS RHAMNOSUS GG 1 CAP CAPSULE PO SCH ×2 (08:08→20:41)
[2018-06-29] MEDS: FOLIC ACID 1 MG TABLET PO SCH (08:08)
[2018-06-29] MEDS: MINERAL OIL 30 ML UDC PO SCH (08:08)
[2018-06-29] MEDS: CALCIUM 600/VIT D PO SCH (08:08)
[2018-06-29] MEDS: levETIRAcetam 500 MG TABLET PO SCH ×2 (08:08→20:41)
[2018-06-29 09:00] LABS: PLATELET COUNT (AUTO) 374 K/uL (130-430)
[2018-06-29] MEDS ORDERED: ENOXAPARIN SODIUM 40 MG/0.4 ML SYRINGE SUBCUT SCH (09:00)
--- NOTE | 2018-06-29 09:35 | NUR ---
DC PLANNING Called & spoke doug Glez @ [facility] transfer center, ph [phone], states GI to GI still needs to be done then Md to Md needs to be done. Pt not ready to be transfer yet, will call me once has contacted their GI Md. Addendum: 06/29/18 at 1128 by Tasneem Davis RN Called & discussed ambulance transfer w Director, Roma. Pt would need to go via ambulance, transferring to higher loc. Spoke w pt @ bedside, & updated still waiting for GI Md's to speak, Md to Md & accepting Dr before being able to transfer to [facility]. Also informed of ambulance transfer, states agreeable w ambulance, does not want to have his upper extremities strapped down, would prefer to sit if possible. Informed would inform ambulance. Updated pt's nurse, Clau. Addendum: 06/29/18 at 1630 by Tasneem Davis RN Called & spoke w Amaris @ [facility] Transfer Center, ph [phone], still no MD to , informed Dr Tsai here. Amaris had their GI, Dr Bowen speak w Dr Tsai while in [facility] station. Per Dr Tsai was going to need GI Surgeon & he would speak would do Md to Md with him. Called & spoke w Amaris & stated that she has paged their GI Surgeon for Md to Md doug Tsai. If accepted would get Md to Md camacho hospitalist. If accepted by hospitalist then will call [facility] station w transfer information. Called [facility], ph [phone], & placed on will-call. Informed pt claustrophobic, states pt can have bed up on gurney & arms out of straps but would need to be w straps on. Informed pt & @ bedside & agreeable. Updated pt's nurse & charge nurse. Ordered & placed CD in transfer packet, transfer packet to [facility] station.
--- NOTE | 2018-06-29 12:15 | NUR ---
ROUNDS Patient sitting up in bed eating. No s/s of distress or SOB. All needs being met. IV site patent, intact. Bed in lowest position, call light within reach. Will cont. to monitor. Family at bedside.
[2018-06-29] MEDS: FLUCONAZOLE 400 mg/ NS 200 ML IV SCH (16:30)
[2018-06-29] MEDS ORDERED: ALPRAZolam 0.25 MG TABLET PO ONE (18:00)
--- NOTE | 2018-06-29 18:16 | NUR ---
CLOSING NOTES Patient in bed awake, alert, oriented. No s/s of distress or SOB. All needs met throughout shift. IV site patent, intact, dressing is dry. Nephrostomy drain patent, intact, dressing is dry, scant amount of brown fluids draining in bag. Safety and fall precautions maintained throughout shift. Bed in lowest position, call light within reach. Will endorse to oncoming RN.
--- NOTE | 2018-06-29 18:48 | NUR ---
Fax OR report to [facility]: Dr. Tsai has called , states that he spoke to Dr. Jeff Lynch from [facility], and requesting to have operative report sent to them and radiology CD both from this admission and previous admission. Call [facility] #[phone] and Fax. #[phone].
--- NOTE | 2018-06-29 19:30 | NUR ---
OPENING NOTES Pt and endorsement received from day shift nurse. Pt is AAOx4, lying in bed. Amaris at bedside. Pt on saline lock on right hand G22. Pt complains of right lower quadrant pain but pt is aware about pain medication not due yet. Pt has dry, clean and intact nephrostomy drainage with brown color liquid in bag. No signs of acute distress or SOB noted. Call light with pt and bed at lowest position. Pt refused bed alarm and was educated on risks and benefits of alarm, pt verbalizes understanding. Will continue to monitor.
--- NOTE | 2018-06-29 23:01 | NUR ---
AMBULANCE I CALLED [facility] @2301 I SPOKE WITH SHAD EMT AMBULANCE WAS PUT ON WILL CALL DURING DAY SHIFT SO I CALLED TO ARRANGE TRANSFER. SHAD SAID GLASS BENDER WILL BE IN 30 TO 40 MINUTES
[2018-06-30] MEDS: DISOPYRAMIDE 100 MG PO SCH
--- NOTE | 2018-06-30 00:33 | NUR ---
PT TRANSFERRED Report given to EMT Iris at bedside. Transfer packet with Transfer Orders and Medication Reconciliation form given to EMT with report. Exitcare provided. [facility] ID band removed, replaced with ID band with pt's name and . IV catheter removed, intact and dressing applied, no active bleeding. All belongings sent with patient. Patient left floor via gurney escorted by EMT and Amaris in no distress.
== END 2018-06-30 00:30 | disposition short-term general hospital (02) | DRG 372 ==
LOC: SED 11:34 → SMU 14:06
PROVIDERS: ADMIT Internal Medicine; ATTEND Internal Medicine
PROC: 0T9030Z Drainage of Right Kidney with Drainage Device, Percutaneous Approach (ICD-10-PCS; principal; 2018-06-23)
DX: K65.1 Peritoneal abscess (principal); R18.8 Other ascites; K65.9 Peritonitis, unspecified; G40.909 Epilepsy, unspecified, not intractable, without status epilepticus; D64.9 Anemia, unspecified; K59.00 Constipation, unspecified; I80.8 Phlebitis and thrombophlebitis of other sites; M06.9 Rheumatoid arthritis, unspecified; Z90.49 Acquired absence of other specified parts of digestive tract; Z95.0 Presence of cardiac pacemaker; Z79.899 Other long term (current) drug therapy; Z79.82 Long term (current) use of aspirin
CPT/HCPCS: 36415; 71045; 75989-TC; 80048; 80053; 80202-TC; 81000-TC; 82150-TC; 82550-TC; 82607; 82746; 83540-TC; 83550-TC; 83605; 83690-TC; 84443-TC; 84484; 85007; 85025; 85027; 85044-TC; 85610-TC; 85730-TC; 87040-TC; 87070-TC; 87075-TC; 87081; 96361; 96374; 96375; 96376; 99285; C1729; J1170; J1450; J1650; J2001; J2270; J2405; J2543; J2916; J3010; J3370; J3490; J7030; J7040; J7050; J7060; J7120; Q9964; Q9967

== ENCOUNTER 2018-10-22 10:15 | Inpatient (IN) | payer BC ==
[~2018-10-22] VITALS: Ht 177.8 cm; Wt 89.8 kg
[2018-10-22 10:15] VITALS: BP_SYST 119
[~2018-10-22 10:15] MED LIST changes: +CALC-22 PO; -CALC-823 PO; -FERR140T PO; +FERR140T2 PO; -HYDR-2489 PO; +HYDR-4274 PO; +LEVE500T53 PO; -MAGN250T10 PO; +PRO40 PO; -RED600TA PO; -SAW160CA3 PO; -SUCR1TAB78 PO
[2018-10-22] MEDS ORDERED: NACL 0.9% 1,000 ML IV ONE (10:30)
[2018-10-22] MEDS ORDERED: KETOROLAC TROMETHAMINE 30 MG VIAL IVP ONE (10:45)
[2018-10-22 11:14] LABS: BASOPHILS % (AUTO) 0.5 % (0.0-2.0); EOSINOPHILS # (AUTO) 0.1 K/uL (0.0-0.4); EOSINOPHILS % (AUTO) 0.7 % (0.0-4.0); HEMATOCRIT 44.8 % (36-54); LYMPHOCYTES # (AUTO) 1.8 K/uL (1.0-5.5); LYMPHOCYTES % (AUTO) 21.6 % (20.5-51.5); MEAN CORPUSCULAR HEMOGLOBIN 29 pg (27-31); MEAN CORPUSCULAR HGB CONC 33 % (32-36); MEAN CORPUSCULAR VOLUME 87 fL (79.0-98.0); MONOCYTES # (AUTO) 0.6 K/uL (0.0-1.0); MONOCYTES % (AUTO) 7.6 % (1.7-9.3); NEUTROPHILS # (AUTO) 5.9 K/uL (1.8-7.7); NEUTROPHILS % (AUTO) 69.6 % (40.0-70.0); PLATELET COUNT (AUTO) 228 K/uL (130-430); RED BLOOD CELL COUNT(AUTO) 5.16 MIL/uL (4.2-6.2); RED CELL DISTRIBUTION WIDTH 15.8 % (9.0-15.0); WHITE BLOOD COUNT (AUTO) 8.4 K/uL (4.8-10.8)
[2018-10-22 11:19] LABS: HEMOGLOBIN 14.9 g/dL (14.0-18.0)
[2018-10-22 11:35] LABS: ANION GAP 12 (5-15); CALCIUM 9.5 mg/dL (8.4-11.0); CHLORIDE 105 mmol/L (98-107); CREATININE 0.67 mg/dL (0.55-1.30); GLUCOSE 101 mg/dL (70-99); POTASSIUM 3.8 mmol/L (3.5-5.1); SODIUM SERUM 143 mmol/L (136-145); UREA NITROGEN, BLOOD 12 mg/dL (8-21)
[2018-10-22 11:37] LABS: GFR AFRICAN AMERICAN 160 mL/min (>90)
[2018-10-22 11:41] LABS: ALANINE AMINOTRANSFERASE 32 U/L (12-78); ALBUMIN 3.6 g/dL (3.4-4.8); ASPARTATE AMINOTRANSFERASE 19 U/L (10-37); TOTAL BILIRUBIN 0.3 mg/dL (0.0-1.0)
[2018-10-22 11:48] LABS: ALCOHOL, BLOOD < 3 mg/dL (<10)
[2018-10-22 11:49] LABS: ACETAMINOPHEN < 1 ug/mL (1-30)
[2018-10-22] MEDS ORDERED: fentaNYL CITRATE/PF 100 MCG/2 ML AMP IVP ONE (12:00)
[2018-10-22 12:32] LABS: CANNABINOID, URINE POSITIVE (NEG <=50); OPIATE, URINE POSITIVE (NEG <=100)
[2018-10-22 12:33] LABS: BARBITURATE, URINE NEGATIVE (NEG <=200); BENZODIAZEPINE, URINE POSITIVE (NEG <=150); COCAINE, URINE NEGATIVE (NEG <=150); METHAMPHETAMINES SCREEN,URINE NEGATIVE (NEG <=500); PHENCYCLIDINE SCREEN,URINE NEGATIVE (NEG <=25); UR TRICYCLIC ANTIDEPRESSANTS NEGATIVE (NEG <=300); URINE AMPHETAMINE NEGATIVE (NEG <=500); URINE METHADONE NEGATIVE (NEG <=200); URINE OXYCODONE SCREEN NEGATIVE (NEG <=100); URINE PROPOXYPHENE SCREEN NEGATIVE (NEG <=300)
[2018-10-22] MEDS ORDERED: MORPHINE 4 MG/ML INJ. SYRINGE IVP ONE (13:00)
[2018-10-22] MEDS ORDERED: SAW160CA3 PO (15:01)
[2018-10-22] MEDS ORDERED: RED600TA PO (15:01)
[2018-10-22] MEDS ORDERED: CYM30 PO (15:01)
[2018-10-22] MEDS ORDERED: [UNRECOGNIZED DRUG - CODE] PO (15:01)
[2018-10-22] MEDS ORDERED: DOCU250C14 PO (15:01)
[2018-10-22 15:24] VITALS: BP_SYST 125
[2018-10-22] MEDS ORDERED: ALPRAZolam 0.25 MG TABLET PO SCH (15:45)
[2018-10-22] MEDS ORDERED: HYDROcodone/ACETAMIN 10-325 MG TAB PO PRN (15:45)
[2018-10-22] MEDS ORDERED: DISOPYRAMIDE PHOSPHATE 150 MG CAPSULE PO SCH (17:00)
[2018-10-22] MEDS ORDERED: DISOPYRAMIDE 100 MG PO SCH (17:20)
[2018-10-22] MEDS ORDERED: MORPHINE 2 MG/ML INJ. SYRINGE IVP PRN (19:00)
[2018-10-22] MEDS ORDERED: GABAPENTIN 300 MG CAPSULE PO SCH (21:00)
[2018-10-22] MEDS ORDERED: levETIRAcetam 500 MG TABLET PO SCH (21:00)
[2018-10-23] MEDS ORDERED: DULoxetine HCL 30 MG CAPSULE.DR (CYMBALTA) PO SCH (09:00)
[2018-10-23] MEDS ORDERED: ASPIRIN 81 MG TAB.CHEW PO SCH (09:00)
[2018-10-23] MEDS ORDERED: FERROUS SULFATE 140 MG TABLET.ER PO SCH (09:00)
[2018-10-23] MEDS ORDERED: FOLIC ACID 1 MG TABLET PO SCH (09:00)
[2018-10-23] MEDS ORDERED: PANTOPRAZOLE SODIUM 40 MG TAB PO SCH (09:00)
[2018-10-23] MEDS ORDERED: DOCUSATE SODIUM 250 MG CAPSULE PO SCH (09:00)
== END 2018-10-22 19:35 | disposition left against medical advice (07) | DRG 103 ==
LOC: SED 10:15 → SMU 14:50
PROVIDERS: ADMIT General Practice; ATTEND General Practice
DX: G43.909 Migraine, unspecified, not intractable, without status migrainosus (principal); I42.2 Other hypertrophic cardiomyopathy; M06.9 Rheumatoid arthritis, unspecified; Z53.21 Procedure and treatment not carried out due to patient leaving prior to being seen by health care provider; Z98.84 Bariatric surgery status; Z95.0 Presence of cardiac pacemaker; Z90.49 Acquired absence of other specified parts of digestive tract
CPT/HCPCS: 36415; 70450-TC; 80053; 80307; 85025; 93005; 93880; 96374; 96375; 99285; G0480; G0481; G0482; J1885; J2270; J3010